=== PATIENT | male | born 1935 | race Caucasian/White ===

== ENCOUNTER 2017-10-25 09:18 | Emergency (ER) | payer MEDICARE ==
[~2017-10-25] VITALS: Ht 182.9 cm; Wt 104.3 kg
[~2017-10-25 09:18] MED LIST: BUPR150T66 PO; COZA100T PO; FENO50TA OR; GLIM1 PO; ISOS30 PO; LANO0.1212 OR; LEXA20TA PO; METO50CR OR; OMEP20TA OR; SIMV20TA PO; WARF2.5T40 PO; WARF5TAB PO
[2017-10-25 09:34] VITALS: BP 145/96; PULSE 94; RESP 18; TEMP 98.6
[2017-10-25 10:07] LABS: BILIRUBIN, URINE NEG (NEG); BLOOD, URINE NEG (NEG); GLUCOSE,URINE NEG (NEG); KETONE, URINE TRACE mg/dL (NEG); NITRITE,URINE NEG (NEG); URINE LEUKOCYTE ESTERASE NEG (NEG)
[2017-10-25] MEDS ORDERED: MORPHINE SULFATE 2 MG/ML INJ IV PUSH ONE ×2 (10:15)
[2017-10-25] MEDS ORDERED: SODIUM CHLORIDE 0.9% FLUSH 10 ML FLUSH IV FLUSH PRN (10:15)
[2017-10-25] MEDS ORDERED: ONDANSETRON HCL 4 MG/2 ML VIAL IVP ONE (10:15)
--- NOTE | 2017-10-25 10:18 | PD ---
HPI Chief Complaint: Abdominal Pain Time Seen by Provider: 10:03 Travel History International Travel<30 days: No Contact w/Intl Traveler<30days: No Traveled to known affect area: No History of Present Illness HPI This patient complains of abdominal pain. Duration 9 hours. Severity is moderate. Location is left lower quadrant. He has nausea but no vomiting or diarrhea or constipation or fever. History of abdominal surgeries. No alleviating factors. No exacerbating factors. PFSH Past Medical History Arthritis: No Asthma: No Atrial Fibrillation: Yes Autoimmune Disease: No Blood Disorders: No Anxiety: Yes Depression: Yes Heart Rhythm Problems: Yes Cancer: Yes (Skin cancer left forearm) Cardiac Catheterization: Yes Cardiovascular Problems: Yes (afib, HTN) High Cholesterol: Yes Chemotherapy: No Chest Pain: Yes Congestive Heart Failure: No COPD: No Cerebrovascular Accident: No Coronary Artery Disease: Yes Diabetes: Yes Patient Takes Glucophage: No Endocrine: No Gastrointestinal Disorders: Yes GERD: No Genitourinary: Yes (frequency) Headaches: No Hepatitis: No Hiatal Hernia: No Hypertension: Yes Immune Disorder: No Kidney Stones: Yes Musculoskeletal: Yes (ham strings tighten) Neurologic: No Psychiatric: Yes Reproductive: No Respiratory: No Migraines: No Myocardial Infarction: No Radiation Therapy: No Renal Failure: No Seizures: No Shingles: Yes Sickle Cell Disease: No Sleep Apnea: No Thyroid Disease: No Ulcer: No Past Surgical History Abdominal Surgery: No AICD: No Appendectomy: No Arteriovenous Shunt: No Cardiac Surgery: No Cholecystectomy: Yes Ear Surgery: No Endocrine Surgery: No Eye Surgery: Yes (cataracts removed eddie) Genitourinary Surgery: No Gynecologic Surgery: No Insulin Pump: No Joint Replacement: No Oral Surgery: No Pacemaker: No Thoracic Surgery: No Tonsillectomy: Yes Other Surgery: Yes (CATARACT SURGERY BOTH EYES) Social History Alcohol Use: No Tobacco Use: No (never) Substance Use: No Allergies-Medications (Allergen,Severity, Reaction): Coded Allergies: No Known Allergies (Verified Adverse Reaction, Unknown, 10/25/17) Reported Meds & Prescriptions Reported Meds & Active Scripts Active Flagyl (Metronidazole) 500 Mg Tab 500 Mg PO QID 10 Days Cipro (Ciprofloxacin HCl) 500 Mg Tab 500 Mg PO BID 10 Days Tramadol (Tramadol HCl) 50 Mg Tab 50 Mg PO Q6H PRN Zofran (Ondansetron HCl) 4 Mg Tab 4 Mg PO Q6HR PRN Reported Parafon Forte Dsc (Chlorzoxazone) 500 Mg Tab 500 Mg PO BID PRN Hydrocodone-Acetamin 5-325 mg (Hydrocodone/Acetaminophen) 5 Mg-325 Mg Tablet 1 Tab PO BID PRN Digoxin 0.125 Mg Tab 0.125 Mg PO DAILY Isosorbide Mononitrate ER (Isosorbide Mononitrate) 30 Mg Shanice 30 Mg PO DAILY Simvastatin 40 Mg Tab 20 Mg PO HS Losartan (Losartan Potassium) 100 Mg Tab 100 Mg PO DAILY Omeprazole 20 Mg Tab 20 Mg PO DAILY Bupropion HCl ER 24 HR (Bupropion HCl) 150 Mg Tab 150 Mg PO DAILY Warfarin 5 Mg Tab 2.5 Mg PO SUTUTHSA Warfarin 5 Mg Tab 5 Mg PO MOWEFR Tricor (Fenofibrate) 145 Mg Tab 145 Mg PO DAILY Takw with food. Metoprolol Tartrate 50 Mg Tab 25 Mg PO BID Glimepiride 1 Mg Tab 2 Mg PO DAILY Take with breakfast or first main meal Escitalopram (Escitalopram Oxalate) 20 Mg Tab 0.5 Tab PO DAILY Review of Systems General / Constitutional: No: Fever Eyes: No: Visual changes HENT: No: Headaches Cardiovascular: No: Chest Pain or Discomfort Respiratory: No: Shortness of Breath Gastrointestinal: Positive: Nausea, Abdominal Pain Genitourinary: No: Dysuria Musculoskeletal: No: Pain Skin: No Rash Neurologic: No: Weakness Psychiatric: No: Depression Endocrine: No: Polydipsia Hematologic/Lymphatic: No: Easy Bruising Physical Exam Narrative GENERAL: Well-nourished, well-developed patient with abdominal pain . SKIN: Focused skin assessment reveals no rash and nodules. Skin is Warm and dry. HEAD: Atraumatic. Normocephalic. EYES: Pupils equal and round. No scleral icterus. No injection or drainage. ENT: No nasal bleeding or discharge. Mucous membranes pink and moist. NECK: Trachea midline. No JVD. CARDIOVASCULAR: Regular rate and rhythm. No murmur appreciated. RESPIRATORY: No accessory muscle use. Clear to auscultation. Breath sounds equal bilaterally. GASTROINTESTINAL: Abdomen soft, upper quadrant is tender without rebound or guarding, nondistended. Hepatic and splenic margins not palpable. MUSCULOSKELETAL: No obvious deformities. No clubbing. No cyanosis. No edema. NEUROLOGICAL: Awake and alert. No obvious cranial nerve deficits. Motor grossly within normal limits. Normal speech. PSYCHIATRIC: Appropriate mood and affect; insight and judgment normal. Data Data Last Documented VS Vital Signs Date Time Temp Pulse Resp B/P (MAP) Pulse Ox O2 Delivery O2 Flow Rate FiO2 10/25/17 11:55 79 16 148/75 (99) 95 Room Air 10/25/17 09:34 98.6 Orders Orders Urinalysis - C+S If Indicated (10/25/17 09:43) Basic Metabolic Panel (Bmp) (10/25/17 10:11) Complete Blood Count With Diff (10/25/17 10:11) Prothrombin Time / Inr (Pt) (10/25/17 10:11) Act Partial Throm Time (Ptt) (10/25/17 10:11) Ct Abd/Pel W Iv Contrast(Rout) (10/25/17 10:11) Iv Access Insert/Monitor (10/25/17 10:11) NPO (10/25/17 10:11) Ondansetron Inj (Zofran Inj) (10/25/17 10:15) Sodium Chloride 0.9% Flush (Ns Flush) (10/25/17 10:15) Morphine Inj (Morphine Inj) (10/25/17 10:15) Morphine Inj (Morphine Inj) (10/25/17 10:15) Iohexol 350 Inj (Omnipaque 350 Inj) (10/25/17 11:23) Labs Laboratory Tests Test 10/25/17 09:49 10/25/17 10:30 Urine Collection Type CLEAN CATCH Urine Color YELLOW Urine Turbidity CLEAR Urine pH 6.0 Urine Specific [place] 1.022 Urine Protein NEG mg/dL Urine Glucose (UA) NEG mg/dL Urine Ketones TRACE mg/dL Urine Occult Blood NEG Urine Nitrite NEG Urine Bilirubin NEG Urine Leukocyte Esterase NEG Urine RBC 0-3 /hpf Urine Squamous Epithelial Cells 0-5 /hpf Microscopic Urinalysis Comment CULT NOT INDICATED Urine Collection Time 09:49 White Blood Count 12.3 TH/MM3 Red Blood Count 4.87 MIL/MM3 Hemoglobin 14.3 GM/DL Hematocrit 43.3 % Mean Corpuscular Volume 88.9 FL Mean Corpuscular Hemoglobin 29.4 PG Mean Corpuscular Hemoglobin Concent 33.0 % Red Cell Distribution Width 13.8 % Platelet Count 242 TH/MM3 Mean Platelet Volume 7.9 FL Neutrophils (%) (Auto) 82.2 % Lymphocytes (%) (Auto) 10.3 % Monocytes (%) (Auto) 6.3 % Eosinophils (%) (Auto) 0.1 % Basophils (%) (Auto) 1.1 % Neutrophils # (Auto) 10.1 TH/MM3 Lymphocytes # (Auto) 1.3 TH/MM3 Monocytes # (Auto) 0.8 TH/MM3 Eosinophils # (Auto) 0.0 TH/MM3 Basophils # (Auto) 0.1 TH/MM3 CBC Comment DIFF FINAL Differential Comment Prothrombin Time 24.7 SEC Prothromb Time International Ratio 2.4 RATIO Activated Partial Thromboplast Time 34.9 SEC Blood Urea Nitrogen 19 MG/DL Creatinine 1.40 MG/DL Random Glucose 171 MG/DL Calcium Level 8.8 MG/DL Sodium Level 134 MEQ/L Potassium Level 4.0 MEQ/L Chloride Level 100 MEQ/L Carbon Dioxide Level 26.7 MEQ/L Anion Gap 7 MEQ/L Estimat Glomerular Filtration Rate 48 ML/MIN [facility] Medical Decision Making Medical Screen Exam Complete: Yes Emergency Medical Condition: Yes Medical Record Reviewed: Yes Differential Diagnosis Diverticulitis, colitis, ileus Narrative Course I have reviewed the patient's electronic medical record. IV placed CBC shows minor leukocytosis Metabolic profile is normal Coagulation studies shows INR 2.4 on Coumadin Urinalysis is clean CT abdomen and pelvis with IV contrast shows mild diverticulitis changes without abscess or perforation I gave him a dose of IV Zofran and morphine for symptom relief On recheck he is clinically doing better and feels well. Stable for outpatient follow-up. Pain and nausea medicine written. 10 days of Flagyl and Cipro written. He is to contact his physician to get follow-up. Diagnosis Primary Impression: Diverticulitis large intestine w/o perforation or abscess w/o bleeding Scripts Metronidazole (Flagyl) 500 Mg Tab 500 MG PO QID for Infection for 10 Days, TAB 0 Refills Prov: Thomas Noe MD 10/25/17 Ciprofloxacin (Cipro) 500 Mg Tab 500 MG PO BID for Infection for 10 Days, #20 TAB 0 Refills Prov: Thomas Noe MD 10/25/17 Tramadol (Tramadol) 50 Mg Tab 50 MG PO Q6H Y for PAIN, #20 TAB 0 Refills Prov: Thomas Noe MD 10/25/17 Ondansetron (Zofran) 4 Mg Tab 4 MG PO Q6HR Y for NAUSEA OR VOMITING, #12 TAB 0 Refills Prov: Thomas Noe MD 10/25/17 Disposition: 01 DISCHARGE HOME Condition: Stable Thomas Noe MD Oct 25, 2017 10:18
[2017-10-25] MEDS ORDERED: OMEP20TA93 PO (10:20)
[2017-10-25] MEDS ORDERED: DIGO0.12 PO (10:20)
[2017-10-25] MEDS ORDERED: ISOS30TA3 PO (10:20)
[2017-10-25] MEDS ORDERED: GLIM1TAB PO (10:20)
[2017-10-25] MEDS ORDERED: ESCI20TA PO (10:20)
[2017-10-25] MEDS ORDERED: LOSA100T PO (10:20)
[2017-10-25] MEDS ORDERED: FENO50TA PO (10:20)
[2017-10-25] MEDS ORDERED: METO50TA PO (10:20)
[2017-10-25] MEDS ORDERED: WARF-23 PO ×2 (10:20)
[2017-10-25] MEDS ORDERED: BUPR150T3 PO (10:20)
[2017-10-25] MEDS ORDERED: SIMV40TA PO (10:20)
[2017-10-25] MEDS ORDERED: HYDR-3516 PO (10:22)
[2017-10-25] MEDS ORDERED: [UNRECOGNIZED DRUG - CODE] PO (10:22)
[2017-10-25 10:25] LABS: RBC, URINE 0-3 /hpf (0-3); SQUAMOUS EPITHELIAL CELL URINE 0-5 /hpf (0-5); URINE COLOR YELLOW (YELLW/STRAW)
[2017-10-25 10:38] LABS: AUTOMATED NEUTROPHIL # 10.1 TH/MM3 (1.8-7.7); BASOPHIL # 0.1 TH/MM3 (0-0.2); BASOPHIL % 1.1 % (0.0-2.0); EOSINOPHIL % 0.1 % (0.0-4.0); HEMATOCRIT 43.3 % (39.0-51.0); HEMOGLOBIN 14.3 GM/DL (13.0-17.0); LYMPH % 10.3 % (9.0-44.0); LYMPHOCYTE # 1.3 TH/MM3 (1.0-4.8); MEAN CELL VOLUME 88.9 FL (80.0-100.0); MEAN CORPUSCULAR HEMOGLOBIN 29.4 PG (27.0-34.0); MEAN PLATELET VOLUME 7.9 FL (7.0-11.0); MONO % 6.3 % (0.0-8.0); MONOCYTE # 0.8 TH/MM3 (0-0.9); NEUT % 82.2 % (16.0-70.0); PLATELET COUNT 242 TH/MM3 (150-450); RED BLOOD COUNT 4.87 MIL/MM3 (4.50-5.90); RED CELL DISTRIBUTION WIDTH 13.8 % (11.6-17.2); WHITE BLOOD COUNT 12.3 TH/MM3 (4.0-11.0)
[2017-10-25 10:52] LABS: INTERNATIONAL NORMALIZED RATIO 2.4 RATIO; PROTHROMBIN TIME - PATIENT 24.7 SEC (9.8-11.6)
[2017-10-25 10:54] LABS: CALCIUM 8.8 MG/DL (8.5-10.1)
[2017-10-25 10:55] LABS: BICARBONATE 26.7 MEQ/L (21.0-32.0)
[2017-10-25 10:58] LABS: CREATININE 1.4 MG/DL (0.60-1.30)
[2017-10-25 11:00] VITALS: BP 163/82; PULSE 83; RESP 16; O2SAT 93
[2017-10-25] MEDS ORDERED: IOHEXOL 350 MG/ML 10 ML VIAL (for RAD DIAG) IVCONTRAST ONE (11:23)
--- NOTE | 2017-10-25 11:48 | RADRPT ---
EXAM DATE/TIME: 10/25/2017 11:10 [facility] COMPARISON: No previous studies available for comparison. INDICATIONS : Left lower quadrant pain and nausea. IV CONTRAST: 80 cc Omnipaque 350 (iohexol) IV ORAL CONTRAST: No oral contrast ingested. RADIATION DOSE: 19.48 CTDIvol (mGy) MEDICAL HISTORY : Cardiovascular disease. Renal calculi. Hypertension. SURGICAL HISTORY : Cholecystectomy. ENCOUNTER: Initial ACUITY: 1 day PAIN SCALE: 10/10 LOCATION: Left lower quadrant TECHNIQUE: Volumetric scanning of the abdomen and pelvis was performed. Using automated exposure control and ad justment of the mA and/or kV according to patient size, radiation dose was kept as low as reasonably achievable to obtain optimal diagnostic quality images. DICOM format image data is available electro nically for review and comparison. FINDINGS: LOWER LUNGS: The visualized lower lungs are clear. LIVER: Subcentimeter hypodense lesions in segment 2 and 5 of the liver which are too small to fully characte rize. Liver is otherwise unremarkable without intrapelvic ductal dilatation. Gallbladder is surgicall y absent. SPLEEN: Slightly enlarged measuring up to 13.7 cm. PANCREAS: Within normal limits. KIDNEYS: Multiple bilateral subcentimeter renal lesions which are too small fully characterize. 2.5 cm exophyt ic cyst in the posterior mid left kidney. Kidneys otherwise demonstrate symmetrical enhancement witho ut evidence for hydronephrosis or radiopaque renal calculi. ADRENAL GLANDS: Within normal limits. VASCULAR: There is no aortic aneurysm. BOWEL/MESENTERY: Mild to moderate colonic diverticulosis in the descending and sigmoid colon. There is associated lee colonic inflammatory change in the distal descending colon consistent with diverticulitis. No evidenc e for perforation or abscess. Remaining bowel appear unremarkable. ABDOMINAL WALL: Within normal limits. RETROPERITONEUM: There is no lymphadenopathy. BLADDER: No wall thickening or mass. REPRODUCTIVE: Nonspecific prominence of the prostate gland which contains coarse calcifications. INGUINAL: There is no lymphadenopathy or hernia. MUSCULOSKELETAL: Within normal limits for patient age. CONCLUSION: 1. Mild diverticulitis in the distal descending colon. No perforation or drainable abscess at this ti me. 2. Mild splenomegaly. 3. Ancillary findings, as above. Bear Torres MD on October 25, 2017 at 11:34 Board Certified Radiologist. This report was verified electronically.
[2017-10-25 11:55] VITALS: BP 148/75; PULSE 79; RESP 16; O2SAT 95
[2017-10-25] MEDS ORDERED: CIPR-9 PO (11:55)
[2017-10-25] MEDS ORDERED: TRAM50TA PO (11:55)
[2017-10-25] MEDS ORDERED: ZOFR4TAB PO (11:55)
[2017-10-25] MEDS ORDERED: METR-1 PO (11:55)
== END 2017-10-25 12:15 | disposition home or self-care (01) ==
LOC: PHED 09:18
DX: K57.32 Diverticulitis of large intestine without perforation or abscess without bleeding (principal); I48.91 Unspecified atrial fibrillation; I10 Essential (primary) hypertension; I25.10 Atherosclerotic heart disease of native coronary artery without angina pectoris; E11.9 Type 2 diabetes mellitus without complications; E78.00 Pure hypercholesterolemia, unspecified; F41.8 Other specified anxiety disorders; Z87.39 Personal history of other diseases of the musculoskeletal system and connective tissue; Z79.84 Long term (current) use of oral hypoglycemic drugs
CPT/HCPCS: 74177; 80048; 81001; 85025; 85610; 85730; 96374; 96375; 99285; J2270; J2405; Q9967

== ENCOUNTER 2017-11-11 11:13 | Inpatient (IN) | payer MEDICARE ==
[2017-11-11] VITALS (9 sets, daily range): BP systolic 11–148; BP diastolic 58–81; PULSE 78–97; RESP 16–18; TEMP 98–98.9; O2SAT 94–98
[~2017-11-11] VITALS: Ht 182.9 cm; Wt 103.9 kg
[~2017-11-11 11:13] MED LIST changes: +BUPR150T3 PO; -BUPR150T66 PO; +CIPR-9 PO; -COZA100T PO; +DIGO0.12 PO; +ESCI20TA PO; -FENO50TA OR; +FENO50TA PO; -GLIM1 PO; +GLIM1TAB PO; +HYDR-3516 PO; -ISOS30 PO; +ISOS30TA3 PO; -LANO0.1212 OR; -LEXA20TA PO; +LOSA100T PO; -METO50CR OR; +METO50TA PO; +METR-1 PO; -OMEP20TA OR; +OMEP20TA93 PO; -SIMV20TA PO; +SIMV40TA PO; +TRAM50TA PO; +WARF-23 PO; -WARF2.5T40 PO; -WARF5TAB PO; +ZOFR4TAB PO; +[UNRECOGNIZED DRUG - CODE] PO
[2017-11-11] MEDS ORDERED: SODIUM CHLOR 0.9% 1000 ML INJ 1,000 ML IV SCH (11:45)
--- NOTE | 2017-11-11 11:52 | PD ---
HPI Chief Complaint: GI Complaint Time Seen by Provider: 11:29 Travel History International Travel<30 days: No Contact w/Intl Traveler<30days: No Traveled to known affect area: No History of Present Illness HPI This 82-year-old male is complaining of abdominal pain. He's been having pain for about 3 days. The pain is aggravated by certain movements. He has tried to eat just Jell-O and soup the pain is been ongoing. He had similar pain and came to the emergency department on October 25. At that time a CT scan showed some diverticulitis. His white count was 12,000. He was given prescriptions for Cipro and Flagyl. He says he took the medication for about 3 or 4 days and then he developed diarrhea and he stopped taking it. He was okay until a few days ago. He did see Dr. Kumari in the meantime who told him to come to the hospital immediately if the pain should recur. He does have a long history of diabetes. He has had a cholecystectomy in the past. He has been taking some pain medication for the discomfort. He feels like he has had some fever PFSH Past Medical History Arthritis: No Asthma: No Atrial Fibrillation: Yes Autoimmune Disease: No Blood Disorders: No Anxiety: Yes Depression: Yes Heart Rhythm Problems: Yes Cancer: Yes (Skin cancer left forearm) Cardiac Catheterization: Yes Cardiovascular Problems: Yes (afib, HTN) High Cholesterol: Yes Chemotherapy: No Chest Pain: Yes Congestive Heart Failure: No COPD: No Cerebrovascular Accident: No Coronary Artery Disease: Yes Diabetes: Yes Patient Takes Glucophage: Yes (TODAY) Diverticulitis: Yes Endocrine: No Gastrointestinal Disorders: Yes GERD: No Genitourinary: Yes (frequency) Headaches: No Hepatitis: No Hiatal Hernia: No Hypertension: Yes Immune Disorder: No Kidney Stones: Yes Musculoskeletal: Yes (ham strings tighten) Neurologic: No Psychiatric: Yes Reproductive: No Respiratory: No Migraines: No Myocardial Infarction: No Radiation Therapy: No Renal Failure: No Seizures: No Shingles: Yes Sickle Cell Disease: No Sleep Apnea: No Thyroid Disease: No Ulcer: No Past Surgical History Abdominal Surgery: No AICD: No Appendectomy: No Arteriovenous Shunt: No Cardiac Surgery: No Cholecystectomy: Yes Ear Surgery: No Endocrine Surgery: No Eye Surgery: Yes (cataracts removed eddie) Genitourinary Surgery: No Gynecologic Surgery: No Insulin Pump: No Joint Replacement: No Oral Surgery: No Pacemaker: No Thoracic Surgery: No Tonsillectomy: Yes Other Surgery: Yes (CATARACT SURGERY BOTH EYES) Social History Alcohol Use: No Tobacco Use: No Substance Use: No Allergies-Medications (Allergen,Severity, Reaction): Coded Allergies: No Known Allergies (Verified Adverse Reaction, Unknown, 11/11/17) Reported Meds & Prescriptions Reported Meds & Active Scripts Active Flagyl (Metronidazole) 500 Mg Tab 500 Mg PO QID 10 Days Cipro (Ciprofloxacin HCl) 500 Mg Tab 500 Mg PO BID 10 Days Tramadol (Tramadol HCl) 50 Mg Tab 50 Mg PO Q6H PRN Zofran (Ondansetron HCl) 4 Mg Tab 4 Mg PO Q6HR PRN Reported Metformin HCl (Metformin HCl (Bulk)) 100 % Pow 500 Mg PO BIDPC Digoxin 0.125 Mg Tab 0.125 Mg PO DAILY Isosorbide Mononitrate ER (Isosorbide Mononitrate) 30 Mg Shanice 30 Mg PO DAILY Simvastatin 40 Mg Tab 20 Mg PO HS Losartan (Losartan Potassium) 100 Mg Tab 100 Mg PO DAILY Omeprazole 20 Mg Tab 20 Mg PO DAILY Bupropion HCl ER 24 HR (Bupropion HCl) 150 Mg Tab 150 Mg PO DAILY Warfarin 5 Mg Tab 2.5 Mg PO SUTUTHSA Warfarin 5 Mg Tab 5 Mg PO MOWEFR Tricor (Fenofibrate) 145 Mg Tab 145 Mg PO DAILY Takw with food. Metoprolol Tartrate 50 Mg Tab 25 Mg PO BID Glimepiride 1 Mg Tab 2 Mg PO DAILY Take with breakfast or first main meal Escitalopram (Escitalopram Oxalate) 20 Mg Tab 0.5 Tab PO DAILY Review of Systems General / Constitutional: Positive: Fever, Chills Eyes: No: Diploplia, Blurred Vision HENT: No: Headaches, Vertigo Cardiovascular: No: Chest Pain or Discomfort, Palpitations Respiratory: No: Cough, Shortness of Breath Gastrointestinal: Positive: Nausea, Diarrhea, Abdominal Pain Genitourinary: No: Urgency, Frequency Musculoskeletal: No: Myalgias, Arthralgias Skin: No Rash, No Itching Neurologic: No: Weakness Psychiatric: No: Anxiety Physical Exam Narrative GENERAL: Well-developed male SKIN: Focused skin assessment warm/dry. HEAD: Atraumatic. Normocephalic. EYES: Pupils equal and round. No scleral icterus. No injection or drainage. ENT: No nasal bleeding or discharge. Mucous membranes pink and moist. NECK: Trachea midline. No JVD. CARDIOVASCULAR: Irregular rate and rhythm. No murmur appreciated. RESPIRATORY: No accessory muscle use. Clear to auscultation. Breath sounds equal bilaterally. GASTROINTESTINAL: Abdomen soft, there is left lower quadrant tenderness with local guarding, nondistended. Hepatic and splenic margins not palpable. MUSCULOSKELETAL: No obvious deformities. No clubbing. No cyanosis. No edema. NEUROLOGICAL: Awake and alert. No obvious cranial nerve deficits. Motor grossly within normal limits. Normal speech. PSYCHIATRIC: Appropriate mood and affect; insight and judgment normal. Data Data Last Documented VS Vital Signs Date Time Temp Pulse Resp B/P (MAP) Pulse Ox O2 Delivery O2 Flow Rate FiO2 11/11/17 13:23 78 16 134/60 (84) 96 Room Air 11/11/17 11:21 98.0 Orders Orders Complete Blood Count With Diff (11/11/17 11:44) Comprehensive Metabolic Panel (11/11/17 11:44) Urinalysis - C+S If Indicated (11/11/17 11:44) Ct Abd/Pel W Iv Contrast(Rout) (11/11/17 11:44) Sodium Chlor 0.9% 1000 Ml Inj (Ns 1000 M (11/11/17 11:45) Iohexol 350 Inj (Omnipaque 350 Inj) (11/11/17 12:53) Labs Laboratory Tests Test 11/11/17 11:55 11/11/17 13:20 White Blood Count 9.2 TH/MM3 Red Blood Count 4.99 MIL/MM3 Hemoglobin 14.2 GM/DL Hematocrit 44.7 % Mean Corpuscular Volume 89.6 FL Mean Corpuscular Hemoglobin 28.4 PG Mean Corpuscular Hemoglobin Concent 31.7 % Red Cell Distribution Width 14.4 % Platelet Count 248 TH/MM3 Mean Platelet Volume 7.9 FL Neutrophils (%) (Auto) 79.0 % Lymphocytes (%) (Auto) 14.3 % Monocytes (%) (Auto) 6.2 % Eosinophils (%) (Auto) 0.3 % Basophils (%) (Auto) 0.2 % Neutrophils # (Auto) 7.3 TH/MM3 Lymphocytes # (Auto) 1.3 TH/MM3 Monocytes # (Auto) 0.6 TH/MM3 Eosinophils # (Auto) 0.0 TH/MM3 Basophils # (Auto) 0.0 TH/MM3 CBC Comment DIFF FINAL Differential Comment Blood Urea Nitrogen 17 MG/DL Creatinine 1.50 MG/DL Random Glucose 116 MG/DL Total Protein 7.2 GM/DL Albumin 3.3 GM/DL Calcium Level 8.3 MG/DL Alkaline Phosphatase 42 U/L Aspartate Amino Transf (AST/SGOT) 31 U/L Alanine Aminotransferase (ALT/SGPT) 26 U/L Total Bilirubin 0.7 MG/DL Sodium Level 137 MEQ/L Potassium Level 3.8 MEQ/L Chloride Level 103 MEQ/L Carbon Dioxide Level 26.0 MEQ/L Anion Gap 8 MEQ/L Estimat Glomerular Filtration Rate 45 ML/MIN [facility] Medical Decision Making Medical Screen Exam Complete: Yes Emergency Medical Condition: Yes Medical Record Reviewed: Yes Differential Diagnosis Differential includes diverticulitis, outpatient treatment failure, perforation Narrative Course CT shows inflammatory changes mild wall thickening involving the distal descending colon characteristic of acute diverticulitis. There is no free air or fluid. Diagnosis Primary Impression: Diverticulitis Fady Rain MD Nov 11, 2017 11:52
[2017-11-11 12:10] LABS: AUTOMATED NEUTROPHIL # 7.3 TH/MM3 (1.8-7.7); BASOPHIL % 0.2 % (0.0-2.0); EOSINOPHIL % 0.3 % (0.0-4.0); HEMATOCRIT 44.7 % (39.0-51.0); HEMOGLOBIN 14.2 GM/DL (13.0-17.0); LYMPH % 14.3 % (9.0-44.0); LYMPHOCYTE # 1.3 TH/MM3 (1.0-4.8); MEAN CELL VOLUME 89.6 FL (80.0-100.0); MEAN CORPUSCULAR HEMOGLOBIN 28.4 PG (27.0-34.0); MEAN CORPUSCULAR HGB CONC 31.7 % (32.0-36.0); MEAN PLATELET VOLUME 7.9 FL (7.0-11.0); MONO % 6.2 % (0.0-8.0); MONOCYTE # 0.6 TH/MM3 (0-0.9); PLATELET COUNT 248 TH/MM3 (150-450); RED BLOOD COUNT 4.99 MIL/MM3 (4.50-5.90); RED CELL DISTRIBUTION WIDTH 14.4 % (11.6-17.2); WHITE BLOOD COUNT 9.2 TH/MM3 (4.0-11.0)
[2017-11-11 12:12] LABS: CHLORIDE 103 MEQ/L (98-107); SODIUM (NA) 137 MEQ/L (136-145)
[2017-11-11 12:15] LABS: CALCIUM 8.3 MG/DL (8.5-10.1)
[2017-11-11 12:16] LABS: ALBUMIN 3.3 GM/DL (3.4-5.0); BLOOD UREA NITROGEN 17 MG/DL (7-18); GLUCOSE,RANDOM 116 MG/DL (74-106)
[2017-11-11 12:19] LABS: ALT (GPT) 26 U/L (12-78); AST (GOT) 31 U/L (15-37); GLOMERULAR FILTRATION RATE 45 ML/MIN (>89)
[2017-11-11 12:20] LABS: TOTAL BILIRUBIN ADULT 0.7 MG/DL (0.2-1.0); TOTAL PROTEIN 7.2 GM/DL (6.4-8.2)
[2017-11-11 12:22] LABS: ALKALINE PHOSPHATASE 42 U/L (45-117)
[2017-11-11] MEDS ORDERED: METFORMIN HOLD POST IV CONTRAST SCH (12:45)
[2017-11-11] MEDS ORDERED: IOHEXOL 350 MG/ML 10 ML VIAL (for RAD DIAG) IVCONTRAST ONE (12:53)
[2017-11-11] MEDS ORDERED: METFPOW PO (13:18)
--- NOTE | 2017-11-11 13:24 | RADRPT ---
EXAM DATE/TIME: 11/11/2017 12:43 [facility] COMPARISON: CT ABDOMEN & PELVIS W CONTRAST, October 25, 2017, 11:10. INDICATIONS : Left lower quadrant pain. Recently diagnosed with diverticulitis with pain occurring the past few day s again with failed outpatient treatment. IV CONTRAST: 75 cc Omnipaque 350 (iohexol) IV ORAL CONTRAST: No oral contrast ingested. RADIATION DOSE: 19.28 CTDIvol (mGy) MEDICAL HISTORY : Hypercholesterolemia. Hypertension. Diverticulitis.Diabetes. Skin cancer. SURGICAL HISTORY : Cholecystectomy. ENCOUNTER: [facility] ACUITY: 3 days PAIN SCALE: 5/10 LOCATION: Left lower quadrant TECHNIQUE: Volumetric scanning of the abdomen and pelvis was performed. Using automated exposure control and ad justment of the mA and/or kV according to patient size, radiation dose was kept as low as reasonably achievable to obtain optimal diagnostic quality images. DICOM format image data is available electro nically for review and comparison. FINDINGS: LOWER LUNGS: The visualized lower lungs are clear. LIVER: Homogeneous density with stable small cystic lesion the left lobe. There is moderate hepatic steatosi s again noted. A second small low attenuation lesion in the right lobe which is unchanged. Patient is status post cholecystectomy.. There is no dilation of the biliary tree. No calcified gallstones. SPLEEN: Normal size without lesion. PANCREAS: Within normal limits. KIDNEYS: Normal in size and shape. There is no mass, stone or hydronephrosis. ADRENAL GLANDS: Within normal limits. VASCULAR: There is no aortic aneurysm. BOWEL/MESENTERY: Inflammatory change and mild wall thickening is again noted involving the distal descending colon wit h multiple diverticuli. This is not appears significantly change. There is no free air or fluid. Ther e is no evidence of obstruction. ABDOMINAL WALL: Within normal limits. RETROPERITONEUM: There is no lymphadenopathy. BLADDER: No wall thickening or mass. REPRODUCTIVE: Within normal limits. INGUINAL: There is no lymphadenopathy or hernia. MUSCULOSKELETAL: Within normal limits for patient age. CONCLUSION: 1. Inflammatory change and mild wall thickening again noted involving the distal descending colon mos t characteristic of acute diverticulitis. There is no free air or fluid. 2. Moderate hepatic steatosis. 3. Benign appearing low density lesions in the liver. Sotero Lee MD on November 11, 2017 at 13:18 Board Certified Radiologist. This report was verified electronically.
[2017-11-11 13:26] LABS: BILIRUBIN, URINE NEG (NEG); BLOOD, URINE NEG (NEG); GLUCOSE,URINE NEG (NEG); KETONE, URINE NEG (NEG); NITRITE,URINE NEG (NEG); PH, URINE 6.5 (5.0-8.5); URINE LEUKOCYTE ESTERASE NEG (NEG)
[2017-11-11] MEDS ORDERED: PIPERACIL-TAZO 4.5 GM PREMIX 100 ML IV ONE (13:45)
[2017-11-11 13:50] LABS: MUCUS URINE RARE /lpf (OCC); URINE COLOR YELLOW (YELLW/STRAW)
[2017-11-11 13:51] LABS: WBC, URINE 0-2 /hpf (0-5)
[2017-11-11] MEDS ORDERED: BISACODYL 10 MG SUPP RECTAL PRN (14:00)
[2017-11-11] MEDS ORDERED: MAGNESIUM HYDROXIDE SUSP 30 ML CUP PO PRN (14:00)
[2017-11-11] MEDS ORDERED: HYDROmorphone HCL PF 2 MG/ML VIAL IV PUSH PRN (14:00)
[2017-11-11] MEDS ORDERED: ACETAMINOPHEN 325 MG TAB PO PRN (14:00)
[2017-11-11] MEDS ORDERED: SENNOSIDES 8.6 MG TAB PO PRN (14:00)
[2017-11-11] MEDS ORDERED: NALOXONE HCL 0.4 MG/ML AMP IV PUSH PRN (14:00)
[2017-11-11] MEDS ORDERED: SODIUM CHLORIDE 0.9% FLUSH 10 ML FLUSH IV FLUSH PRN (14:00)
[2017-11-11] MEDS ORDERED: LACTULOSE SYRUP 20 GM/30 ML CUP PO PRN (14:00)
[2017-11-11] MEDS ORDERED: ONDANSETRON HCL 4 MG/2 ML VIAL IVP PRN (14:00)
[2017-11-11] MEDS ORDERED: WARFARIN SOD 5 MG TAB PO SCH (14:15)
[2017-11-11 15:16] LABS: INTERNATIONAL NORMALIZED RATIO 3.6 RATIO; PROTHROMBIN TIME - PATIENT 36.3 SEC (9.8-11.6)
[2017-11-11] MEDS ORDERED: metFORMIN HCL 500 MG TAB PO SCH (18:00)
--- NOTE | 2017-11-11 18:26 | HHI.HP ---
HPI Service [facility] Hospitalists Primary Care Physician Vin Kumari MD Admission Diagnosis ACUTE DIVERTICULITIS Chief Complaint: recurrent abdominal pain failed out patient treatment Travel History International Travel<30 Days: No Contact w/Intl Traveler <30 Da: No Traveled to Known Affected Are: No History of Present Illness This 82-year-old male is complaining of abdominal pain. He's been having pain for about 3 days. The pain is aggravated by certain movements. He has tried to eat just Jell-O and soup the pain is been ongoing. He had similar pain and came to the emergency department on October 25. At that time a CT scan showed some diverticulitis. His white count was 12,000. He was given prescriptions for Cipro and Flagyl. He says he took the medication for about 3 or 4 days and then he developed diarrhea and he stopped taking it. He was okay until a few days ago. He did see Dr. Kumari in the meantime who told him to come to the hospital immediately if the pain should recur and also told patient to go back on his antibiotics.. He does have a long history of diabetes. He has had a cholecystectomy in the past. He has been taking some pain medication for the discomfort. He feels like he has had some fever. He also went back to eating regular food which exacerbated his symptoms. CT consistent with acute diverticulitis. Review of Systems Gastrointestinal: COMPLAINS OF: Abdominal pain, Diarrhea, Nausea Past Family Social History Past Medical History a fib,anxiety,depression,hypertension,increase lipids,dm,kidney stone Past Surgical History gallbladder,tonsil cataract Reported Medications Flagyl (Metronidazole) 500 Mg Tab 500 Mg PO QID 10 Days Cipro (Ciprofloxacin HCl) 500 Mg Tab 500 Mg PO BID 10 Days Tramadol (Tramadol HCl) 50 Mg Tab 50 Mg PO Q6H PRN Zofran (Ondansetron HCl) 4 Mg Tab 4 Mg PO Q6HR PRN Reported Metformin HCl (Metformin HCl (Bulk)) 100 % Pow 500 Mg PO BIDPC Digoxin 0.125 Mg Tab 0.125 Mg PO DAILY Isosorbide Mononitrate ER (Isosorbide Mononitrate) 30 Mg Shanice 30 Mg PO DAILY Simvastatin 40 Mg Tab 20 Mg PO HS Losartan (Losartan Potassium) 100 Mg Tab 100 Mg PO DAILY Omeprazole 20 Mg Tab 20 Mg PO DAILY Bupropion HCl ER 24 HR (Bupropion HCl) 150 Mg Tab 150 Mg PO DAILY Warfarin 5 Mg Tab 2.5 Mg PO SUTUTHSA Warfarin 5 Mg Tab 5 Mg PO MOWEFR Tricor (Fenofibrate) 145 Mg Tab 145 Mg PO DAILY Takw with food. Metoprolol Tartrate 50 Mg Tab 25 Mg PO BID Glimepiride 1 Mg Tab 2 Mg PO DAILY Take with breakfast or first main meal Escitalopram (Escitalopram Oxalate) 20 Mg Tab 0.5 Tab PO DAILY Allergies: Coded Allergies: No Known Allergies (Verified Adverse Reaction, Unknown, 11/11/17) Social History NS,ND Physical Exam Vital Signs Vital Signs Date Time Temp Pulse Resp B/P (MAP) Pulse Ox O2 Delivery O2 Flow Rate FiO2 11/11/17 17:48 92 16 135/70 (91) 95 Room Air 11/11/17 14:32 88 16 111/60 (77) 96 Room Air 11/11/17 13:23 78 16 134/60 (84) 96 Room Air 11/11/17 11:21 98.0 89 16 132/61 (84) 94 Physical Exam GENERAL: This is a well-nourished, well-developed patient, in no apparent distress. SKIN: No rashes, ecchymoses or lesions. Cool and dry. HEAD: Atraumatic. Normocephalic. No temporal or scalp tenderness. EYES: Pupils equal round and reactive. Extraocular motions intact. No scleral icterus. No injection or drainage. ENT: Nose without bleeding, purulent drainage or septal hematoma. Throat without erythema, tonsillar hypertrophy or exudate. Uvula midline. Airway patent. NECK: Trachea midline. No JVD or lymphadenopathy. Supple, nontender, no meningeal signs. CARDIOVASCULAR: Regular rate and rhythm without murmurs, gallops, or rubs. RESPIRATORY: Clear to auscultation. Breath sounds equal bilaterally. No wheezes , rales, or rhonchi. GASTROINTESTINAL: Abdomen soft, mildly-tender, nondistended. No hepato- splenomegaly, or palpable masses. No guarding. MUSCULOSKELETAL: Extremities without clubbing, cyanosis, or edema. No joint tenderness, effusion, or edema noted. No calf tenderness. Negative Homans sign bilaterally. NEUROLOGICAL: Awake and alert. Cranial nerves II through XII intact. Motor and sensory grossly within normal limits. Five out of 5 muscle strength in all muscle groups. Normal speech. Laboratory Laboratory Tests Test 11/11/17 11:55 11/11/17 13:20 11/11/17 14:45 White Blood Count 9.2 Red Blood Count 4.99 Hemoglobin 14.2 Hematocrit 44.7 Mean Corpuscular Volume 89.6 Mean Corpuscular Hemoglobin 28.4 Mean Corpuscular Hemoglobin Concent 31.7 Red Cell Distribution Width 14.4 Platelet Count 248 Mean Platelet Volume 7.9 Neutrophils (%) (Auto) 79.0 Lymphocytes (%) (Auto) 14.3 Monocytes (%) (Auto) 6.2 Eosinophils (%) (Auto) 0.3 Basophils (%) (Auto) 0.2 Neutrophils # (Auto) 7.3 Lymphocytes # (Auto) 1.3 Monocytes # (Auto) 0.6 Eosinophils # (Auto) 0.0 Basophils # (Auto) 0.0 CBC Comment DIFF FINAL Differential Comment Blood Urea Nitrogen 17 Creatinine 1.50 Random Glucose 116 Total Protein 7.2 Albumin 3.3 Calcium Level 8.3 Alkaline Phosphatase 42 Aspartate Amino Transf (AST/SGOT) 31 Alanine Aminotransferase (ALT/SGPT) 26 Total Bilirubin 0.7 Sodium Level 137 Potassium Level 3.8 Chloride Level 103 Carbon Dioxide Level 26.0 Anion Gap 8 Estimat Glomerular Filtration Rate 45 Urine Collection Type VOIDED Urine Color YELLOW Urine Turbidity CLEAR Urine pH 6.5 Urine Specific [place] 1.035 Urine Protein NEG Urine Glucose (UA) NEG Urine Ketones NEG Urine Occult Blood NEG Urine Nitrite NEG Urine Bilirubin NEG Urine Leukocyte Esterase NEG Urine WBC 0-2 Urine Mucus RARE Microscopic Urinalysis Comment CULT NOT INDICATED Prothrombin Time 36.3 Prothromb Time International Ratio 3.6 Result Diagram: 11/11/17 1155 11/11/17 1155 Imaging Last 24 hours Impressions Abdomen/Pelvis CT 11/11/17 1144 Signed Impressions: Service Date/Time: Saturday, November 11, 2017 12:43 - CONCLUSION: 1. Inflammatory change and mild wall thickening again noted involving the distal descending colon most characteristic of acute diverticulitis. There is no free air or fluid. 2. Moderate hepatic steatosis. 3. Benign appearing low density lesions in the liver. Sotero Lee MD Course in er started on Zosyn and fluid Caprini VTE Risk Assessment Caprini VTE Risk Assessment: Mod/High Risk (score >= 2) Caprini Risk Assessment Model Point Value = 1 Point Value = 2 Point Value = 3 Point Value = 5 Age 41-60 Minor surgery BMI > 25 kg/m2 Swollen legs Varicose veins or History of unexplained or recurrent spontaneous Oral contraceptives or hormone replacement Sepsis (< 1 month) Serious lung disease, including pneumonia (< 1 month) Abnormal pulmonary function Acute myocardial infarction Congestive heart failure (< 1 month) History of inflammatory bowel disease Medical patient at bed rest Age 61-74 Arthroscopic surgery Major open surgery (> 45 min) Laparoscopic surgery (> 45 min) Malignancy Confined to bed (> 72 hours) Immobilizing plaster cast Central venous access Age >= 75 History of VTE Family history of VTE Factor V Leiden Prothrombin [id number] Lupus anticoagulant Anticardiolipin antibodies Elevated serum homocysteine Heparin-induced thrombocytopenia Other congenital or acquired thrombophilia Stroke (< 1 month) Elective arthroplasty Hip, pelvis, or leg fracture Acute spinal cord injury (< 1 month) Prophylaxis Regimen Total Risk Factor Score Risk Level Prophylaxis Regimen 0-1 Low Early ambulation 2 Moderate Order ONE of the following: *Sequential Compression Device (SCD) *Heparin 5000 units SQ BID 3-4 Higher Order ONE of the following medications: *Heparin 5000 units SQ TID *Enoxaparin/Lovenox 40 mg SQ daily (WT < 150 kg, CrCl > 30 mL/min) *Enoxaparin/Lovenox 30 mg SQ daily (WT < 150 kg, CrCl > 10-29 mL/min) *Enoxaparin/Lovenox 30 mg SQ BID (WT < 150 kg, CrCl > 30 mL/min) AND/OR *Sequential Compression Device (SCD) 5 or more Highest Order ONE of the following medications: *Heparin 5000 units SQ TID (Preferred with Epidurals) *Enoxaparin/Lovenox 40 mg SQ daily (WT < 150 kg, CrCl > 30 mL/min) *Enoxaparin/Lovenox 30 mg SQ daily (WT < 150 kg, CrCl > 10-29 mL/min) *Enoxaparin/Lovenox 30 mg SQ BID (WT < 150 kg, CrCl > 30 mL/min) AND *Sequential Compression Device (SCD) Assessment and Plan Problem List: (1) Diverticulitis ICD Codes: K57.92 - Diverticulitis of intestine, part unspecified, without perforation or abscess without bleeding Status: Acute Plan: continue zosyn fluid pain control nausea medication GI consult (2) Atrial fibrillation ICD Codes: I48.91 - Unspecified atrial fibrillation Status: Chronic Plan: continue home meds and coumadin (3) Diabetes ICD Codes: E11.9 - Type 2 diabetes mellitus without complications Status: Chronic Plan: as patient on clear liquids will hold po meds and use sliding scale Assessment and Plan further plan as case develops Code Status full Discussed Condition With patient Physician Certification 2 Midnight Certification Type: Admission for Inpatient Services Order for Inpatient Services The services are ordered in accordance with Medicare regulations or non- Medicare payer requirements, as applicable. In the case of services not specified as inpatient-only, they are appropriately provided as inpatient services in accordance with the 2-midnight benchmark. Estimated LOS (days): 2 2 days is the estimated time the patient will need to remain in the hospital, assuming treatment plan goals are met and no additional complications. Post-Hospital Plan: Not yet determined Problem Qualifiers (1) Diabetes: Dru Lovell MD Nov 11, 2017 18:26
[2017-11-11] MEDS ORDERED: PRAVASTATIN SOD 40 MG TAB PO SCH (21:00)
[2017-11-11] MEDS: INSULIN ASPART SUPPLEMENTAL SCALE SQ SCH (21:00)
[2017-11-11] MEDS: SODIUM CHLORIDE 0.9% FLUSH 10 ML FLUSH IV FLUSH SCH (21:39)
[2017-11-11] MEDS: METOPROLOL TARTRATE 25 MG TAB PO SCH (21:39)
[2017-11-11] MEDS: DOCUSATE SODIUM 50 MG/SENNA 8.6 MG TAB PO SCH (21:39)
[2017-11-11] MEDS: SODIUM CHLOR 0.45% 1000 ML INJ 1,000 ML IV SCH (23:26)
[2017-11-11] MEDS: PIPERACIL-TAZO 3.375 GM PREMIX 50 ML IV SCH (23:26)
[2017-11-12 04:00] VITALS: BP 144/75; PULSE 84; RESP 18; TEMP 98.9; O2SAT 93
[2017-11-12] MEDS: SODIUM CHLOR 0.45% 1000 ML INJ 1,000 ML IV SCH (04:20)
[2017-11-12 04:26] VITALS: PULSE 96
[2017-11-12] MEDS: PIPERACIL-TAZO 3.375 GM PREMIX 50 ML IV SCH ×2 (05:43→13:38)
[2017-11-12 06:41] LABS: AUTOMATED NEUTROPHIL # 6.6 TH/MM3 (1.8-7.7); BASOPHIL % 0.3 % (0.0-2.0); EOSINOPHIL % 0.5 % (0.0-4.0); HEMATOCRIT 39.2 % (39.0-51.0); HEMOGLOBIN 12.9 GM/DL (13.0-17.0); LYMPHOCYTE # 1.2 TH/MM3 (1.0-4.8); MEAN CORPUSCULAR HEMOGLOBIN 29.2 PG (27.0-34.0); MEAN CORPUSCULAR HGB CONC 32.8 % (32.0-36.0); MEAN PLATELET VOLUME 8.4 FL (7.0-11.0); MONO % 8.7 % (0.0-8.0); MONOCYTE # 0.7 TH/MM3 (0-0.9); NEUT % 76.5 % (16.0-70.0); PLATELET COUNT 213 TH/MM3 (150-450); RED BLOOD COUNT 4.41 MIL/MM3 (4.50-5.90); WHITE BLOOD COUNT 8.5 TH/MM3 (4.0-11.0)
[2017-11-12 06:54] LABS: INTERNATIONAL NORMALIZED RATIO 3.1 RATIO
[2017-11-12 07:04] LABS: CREATININE 1.5 MG/DL (0.60-1.30)
[2017-11-12 08:00] VITALS: BP 141/69; PULSE 93; RESP 14; TEMP 98; O2SAT 96
[2017-11-12] MEDS: INSULIN ASPART SUPPLEMENTAL SCALE SQ SCH ×2 (08:00→11:25)
[2017-11-12 08:15] VITALS: PULSE 83
[2017-11-12] MEDS ORDERED: PANTOPRAZOLE SOD 20 MG DELAYED RELEASE TAB PO SCH (09:00)
[2017-11-12] MEDS ORDERED: FENOFIBRATE 145 MG TAB PO SCH (09:00)
[2017-11-12] MEDS ORDERED: DIGOXIN 0.125 MG TAB PO SCH (09:00)
[2017-11-12] MEDS ORDERED: ISOSORBIDE MONONITRATE 30 MG TAB PO SCH (09:00)
[2017-11-12] MEDS ORDERED: GLIMEPIRIDE 2 MG TAB PO SCH (09:00)
[2017-11-12] MEDS ORDERED: LOSARTAN 50 MG TAB PO SCH (09:00)
[2017-11-12] MEDS ORDERED: ESCITALOPRAM OXALATE 10 MG TAB PO SCH (09:00)
[2017-11-12] MEDS ORDERED: buPROPion HCL 150 MG SUSTAINED RELEASE TAB PO SCH (09:00)
[2017-11-12] MEDS: DOCUSATE SODIUM 50 MG/SENNA 8.6 MG TAB PO SCH (09:24)
[2017-11-12] MEDS: METOPROLOL TARTRATE 25 MG TAB PO SCH (09:24)
[2017-11-12] MEDS: SODIUM CHLORIDE 0.9% FLUSH 10 ML FLUSH IV FLUSH SCH (09:25)
--- NOTE | 2017-11-12 10:59 | PD.CONS ---
HPI History of Present Illness This is a 82 year old male who presents to the emergency room with complaints of left lower quadrant abdominal pain CT on admission is done and he is found to have acute diverticulitis the patient reports having eaten nuts just prior to this episode he does report having had a colonoscopy in the past about 7 or 8 years ago and he did have colon polyps at the time since admission he was started on antibiotics and he is currently resting comfortably in bed feeling the patient does report having had issues with constipation prior to this episode but after he got his first doses of antibiotics he got diarrhea the antibiotics have since been changed and he denies any diarrhea at this point [facility] Past Medical History Age fibrillation, anxiety, hypertension, kidney stones, diabetes Past Surgical History gallbladder,tonsil cataract Coded Allergies: No Known Allergies (Verified Adverse Reaction, Unknown, 11/11/17) Medications Flagyl (Metronidazole) 500 Mg Tab 500 Mg PO QID 10 Days Cipro (Ciprofloxacin HCl) 500 Mg Tab 500 Mg PO BID 10 Days Tramadol (Tramadol HCl) 50 Mg Tab 50 Mg PO Q6H PRN Zofran (Ondansetron HCl) 4 Mg Tab 4 Mg PO Q6HR PRN Reported Metformin HCl (Metformin HCl (Bulk)) 100 % Pow 500 Mg PO BIDPC Digoxin 0.125 Mg Tab 0.125 Mg PO DAILY Isosorbide Mononitrate ER (Isosorbide Mononitrate) 30 Mg Shanice 30 Mg PO DAILY Simvastatin 40 Mg Tab 20 Mg PO HS Losartan (Losartan Potassium) 100 Mg Tab 100 Mg PO DAILY Omeprazole 20 Mg Tab 20 Mg PO DAILY Bupropion HCl ER 24 HR (Bupropion HCl) 150 Mg Tab 150 Mg PO DAILY Warfarin 5 Mg Tab 2.5 Mg PO SUTUTHSA Warfarin 5 Mg Tab 5 Mg PO MOWEFR Tricor (Fenofibrate) 145 Mg Tab 145 Mg PO DAILY Takw with food. Metoprolol Tartrate 50 Mg Tab 25 Mg PO BID Glimepiride 1 Mg Tab 2 Mg PO DAILY Take with breakfast or first main meal Escitalopram (Escitalopram Oxalate) 20 Mg Tab 0.5 Tab PO DAILY Family History Noncontributory Social History Negative Review of Systems Review of systems Patient denies any headache dizziness blurry vision, denies any chest pain shortness of breath cough fever chills, Denies any palpitations or fatigue denies any polyuria dysuria hematuria, denies any numbness tingling or weakness, denies any skin rash pruritus or jaundice, denies any easy bruising or bleeding tendency, denies any recent change in mood GI Exam Vitals I&O Vital Signs Date Time Temp Pulse Resp B/P (MAP) Pulse Ox O2 Delivery O2 Flow Rate FiO2 11/12/17 08:00 98.0 93 14 141/69 (93) 96 11/12/17 04:26 96 11/12/17 04:00 98.9 84 18 144/75 (98) 93 11/11/17 22:00 98.9 79 18 148/81 (103) 96 11/11/17 21:48 90 18 144/67 (92) 96 11/11/17 21:15 92 18 138/58 (84) 95 Room Air 11/11/17 20:12 97 18 143/71 (95) 95 Room Air 11/11/17 19:00 86 18 135/66 (89) 98 Room Air 11/11/17 19:00 18 11/11/17 17:48 92 16 135/70 (91) 95 Room Air 11/11/17 14:32 88 16 111/60 (77) 96 Room Air 11/11/17 13:23 78 16 134/60 (84) 96 Room Air 11/11/17 11:21 98.0 89 16 132/61 (84) 94 I/O 11/11/17 11/11/17 11/11/17 11/12/17 11/12/17 11/12/17 07:00 15:00 23:00 07:00 15:00 23:00 Intake Total 100 ml 670 ml 358 ml Output Total 500 ml Balance 100 ml 170 ml 358 ml Intake Oral 520 ml 358 ml IV Total 100 ml 150 ml Output Urine Total 500 ml # Bowel Movements 0 Imaging Last Impressions Abdomen/Pelvis CT 11/11/17 1144 Signed Impressions: Service Date/Time: Saturday, November 11, 2017 12:43 - CONCLUSION: 1. Inflammatory change and mild wall thickening again noted involving the distal descending colon most characteristic of acute diverticulitis. There is no free air or fluid. 2. Moderate hepatic steatosis. 3. Benign appearing low density lesions in the liver. Sotero Lee MD Laboratory Test 11/11/17 11:55 11/11/17 13:20 11/11/17 14:45 11/12/17 05:20 White Blood Count 9.2 TH/MM3 8.5 TH/MM3 Red Blood Count 4.99 MIL/MM3 4.41 MIL/MM3 Hemoglobin 14.2 GM/DL 12.9 GM/DL Hematocrit 44.7 % 39.2 % Mean Corpuscular Volume 89.6 FL 89.0 FL Mean Corpuscular Hemoglobin 28.4 PG 29.2 PG Mean Corpuscular Hemoglobin Concent 31.7 % 32.8 % Red Cell Distribution Width 14.4 % 14.0 % Platelet Count 248 TH/MM3 213 TH/MM3 Mean Platelet Volume 7.9 FL 8.4 FL Neutrophils (%) (Auto) 79.0 % 76.5 % Lymphocytes (%) (Auto) 14.3 % 14.0 % Monocytes (%) (Auto) 6.2 % 8.7 % Eosinophils (%) (Auto) 0.3 % 0.5 % Basophils (%) (Auto) 0.2 % 0.3 % Neutrophils # (Auto) 7.3 TH/MM3 6.6 TH/MM3 Lymphocytes # (Auto) 1.3 TH/MM3 1.2 TH/MM3 Monocytes # (Auto) 0.6 TH/MM3 0.7 TH/MM3 Eosinophils # (Auto) 0.0 TH/MM3 0.0 TH/MM3 Basophils # (Auto) 0.0 TH/MM3 0.0 TH/MM3 CBC Comment DIFF FINAL DIFF FINAL Differential Comment Blood Urea Nitrogen 17 MG/DL 14 MG/DL Creatinine 1.50 MG/DL 1.50 MG/DL Random Glucose 116 MG/DL 161 MG/DL Total Protein 7.2 GM/DL Albumin 3.3 GM/DL Calcium Level 8.3 MG/DL 8.0 MG/DL Alkaline Phosphatase 42 U/L Aspartate Amino Transf (AST/SGOT) 31 U/L Alanine Aminotransferase (ALT/SGPT) 26 U/L Total Bilirubin 0.7 MG/DL Sodium Level 137 MEQ/L 136 MEQ/L Potassium Level 3.8 MEQ/L 3.5 MEQ/L Chloride Level 103 MEQ/L 103 MEQ/L Carbon Dioxide Level 26.0 MEQ/L 25.0 MEQ/L Anion Gap 8 MEQ/L 8 MEQ/L Estimat Glomerular Filtration Rate 45 ML/MIN 45 ML/MIN Urine Collection Type VOIDED Urine Color YELLOW Urine Turbidity CLEAR Urine pH 6.5 Urine Specific [place] 1.035 Urine Protein NEG mg/dL Urine Glucose (UA) NEG mg/dL Urine Ketones NEG mg/dL Urine Occult Blood NEG Urine Nitrite NEG Urine Bilirubin NEG Urine Leukocyte Esterase NEG Urine WBC 0-2 /hpf Urine Mucus RARE /lpf Microscopic Urinalysis Comment CULT NOT INDICATED Prothrombin Time 36.3 SEC 31.0 SEC Prothromb Time International Ratio 3.6 RATIO 3.1 RATIO Physical Examination HEENT: Pupils round and reactive to light; normocephalic; atraumatic; no jaundice. Throat is clear. NECK: Neck is supple, no JVD, no lymphadenopathy. CHEST: Chest is clear to auscultation and percussion. CARDIAC: Regular rate and rhythm with no murmur gallop or rubs. ABDOMEN: Soft, nondistended, nontender; no hepatosplenomegaly; bowel sounds are present in all four quadrants. EXTREMITIES: No clubbing, cyanosis, or edema. SKIN: Normal; no rash; no jaundice. [employer]GRAM[employer]: No focal deficits; alert and oriented times three. Assessment and Plan Plan Abdominal pain, acute diverticulitis History of colon polyps At this point the patient appears to be improving I do agree with current supportive care We will need to finish a course of antibiotics we'll defer to attending physician Patient to follow-up with GI in about 4 weeks at which time we will determine our next step which would most likely be to pursue a colonoscopy Patient advised to chew food well and eat loss roughage and to try and avoid nuts seeds and popcorn at this point Hasmukh Plaza MD Nov 12, 2017 10:59
[2017-11-12 11:27] LABS: BILIRUBIN, URINE NEG (NEG); BLOOD, URINE MOD (NEG); GLUCOSE,URINE NEG (NEG); KETONE, URINE NEG (NEG); NITRITE,URINE NEG (NEG); URINE LEUKOCYTE ESTERASE NEG (NEG)
[2017-11-12 11:34] LABS: URINE COLOR STRAW (YELLW/STRAW)
[2017-11-12 11:36] LABS: WBC, URINE 0-2 /hpf (0-5)
[2017-11-12 12:00] VITALS: BP 135/71; PULSE 85; RESP 14; TEMP 98; O2SAT 95
[2017-11-12] MEDS ORDERED: WARFARIN SOD 5 MG TAB PO SCH (14:15)
[2017-11-12] MEDS ORDERED: CIPR-9 PO ×3 (15:36→15:40)
--- NOTE | 2017-11-12 15:48 | HHI.DS ---
Discharge Summary Admission Date Nov 11, 2017 at 14:01 Admitting Diagnosis ACUTE DIVERTICULITIS (1) Diverticulitis Diagnosis: Principal ICD Codes: K57.92 - Diverticulitis of intestine, part unspecified, without perforation or abscess without bleeding Status: Acute (2) Atrial fibrillation Diagnosis: Secondary ICD Codes: I48.91 - Unspecified atrial fibrillation Status: Chronic (3) Diabetes Diagnosis: Secondary ICD Codes: E11.9 - Type 2 diabetes mellitus without complications Status: Chronic Consultants GI Brief History This 82-year-old male is complaining of abdominal pain. He's been having pain for about 3 days. The pain is aggravated by certain movements. He has tried to eat just Jell-O and soup the pain is been ongoing. He had similar pain and came to the emergency department on October 25. At that time a CT scan showed some diverticulitis. His white count was 12,000. He was given prescriptions for Cipro and Flagyl. He says he took the medication for about 3 or 4 days and then he developed diarrhea and he stopped taking it. He was okay until a few days ago. He did see Dr. Kumari in the meantime who told him to come to the hospital immediately if the pain should recur and also told patient to go back on his antibiotics.. He does have a long history of diabetes. He has had a cholecystectomy in the past. He has been taking some pain medication for the discomfort. He feels like he has had some fever. He also went back to eating regular food which exacerbated his symptoms. CT consistent with acute diverticulitis. CBC/BMP: 11/12/17 0520 11/12/17 0520 Significant Findings Laboratory Tests Test 11/11/17 11:55 11/11/17 13:20 11/11/17 14:45 11/12/17 05:20 Mean Corpuscular Hemoglobin Concent 31.7 % (32.0-36.0) Neutrophils (%) (Auto) 79.0 % (16.0-70.0) 76.5 % (16.0-70.0) Creatinine 1.50 MG/DL (0.60-1.30) 1.50 MG/DL (0.60-1.30) Random Glucose 116 MG/DL (74-106) 161 MG/DL (74-106) Albumin 3.3 GM/DL (3.4-5.0) Calcium Level 8.3 MG/DL (8.5-10.1) 8.0 MG/DL (8.5-10.1) Alkaline Phosphatase 42 U/L (45-117) Estimat Glomerular Filtration Rate 45 ML/MIN (>89) 45 ML/MIN (>89) Prothrombin Time 36.3 SEC (9.8-11.6) 31.0 SEC (9.8-11.6) Red Blood Count 4.41 MIL/MM3 (4.50-5.90) Hemoglobin 12.9 GM/DL (13.0-17.0) Monocytes (%) (Auto) 8.7 % (0.0-8.0) Test 11/12/17 11:10 Urine Occult Blood MOD (NEG) Urine RBC 4-9 /hpf (0-3) PE at Discharge GENERAL: SKIN: Warm and dry. HEAD: Atraumatic. Normocephalic. EYES: Pupils equal and round. No scleral icterus. No injection or drainage. ENT: No nasal bleeding or discharge. Mucous membranes pink and moist. NECK: Trachea midline. No JVD. CARDIOVASCULAR: Regular rate and rhythm. RESPIRATORY: No accessory muscle use. Clear to auscultation. Breath sounds equal bilaterally. GASTROINTESTINAL: Abdomen soft, non-tender, nondistended. Hepatic and splenic margins not palpable. MUSCULOSKELETAL: Extremities without clubbing, cyanosis, or edema. No obvious deformities. NEUROLOGICAL: Awake and alert. No obvious cranial nerve deficits. Motor grossly within normal limits. Five out of 5 muscle strength in the arms and legs. Normal speech. PSYCHIATRIC: Appropriate mood and affect; insight and judgment normal. Hospital Course Patient admitted and was started on zosyn IV and was on clear liquids and his diabetic meds were on hold . Patient did well and advanced to diabetic diet and tolerated it well. He did have some blood in urine and patient does take coumadin for atrial fib INR was 3.1 ,i will hold today and tomorrow restart on with blood work ordered for saturday . Patient states that his has some loose stool will order c diff toxin and this can be checked as out patient. CT abdomen suggested acute diverticulitis ,GI saw patient agreed with plan and will follow up patient in 3 weeks for possible colonoscopy. Discharge on cipro 500 bid for 10days . To restart his regular diabetic medications. Pt Condition on Discharge: Good Discharge Disposition: Discharge Home Discharge Instructions DIET: Follow Instructions for: Diabetic Diet Activities you can perform: Regular-No Restrictions New Medications: Ciprofloxacin (Cipro) 500 Mg Tab 500 MG PO BID for Infection for 10 Days, #20 TAB 0 Refills one bid for 10 days Continued Medications: Bupropion HCl ER 24 HR (Bupropion HCl ER 24 HR) 150 Mg Tab 150 MG PO DAILY for Control Depression, TAB 0 Refills Ciprofloxacin (Cipro) 500 Mg Tab 500 MG PO BID for Infection for 10 Days, #20 TAB 0 Refills (This prescription has been renewed) Digoxin (Digoxin) 0.125 Mg Tab 0.125 MG PO DAILY for Regulate Heart Beat, #30 TAB 0 Refills Escitalopram (Escitalopram) 20 Mg Tab 0.5 TAB PO DAILY, #30 TAB 0 Refills Fenofibrate (Tricor) 145 Mg Tab 145 MG PO DAILY, #30 TAB 0 Refills Takw with food. Glimepiride (Glimepiride) 1 Mg Tab 2 MG PO DAILY for Blood Sugar Management, #30 TAB 0 Refills Take with breakfast or first main meal Isosorbide Mononitrate ER (Isosorbide Mononitrate ER) 30 Mg Shanice 30 MG PO DAILY for Prevent Chest Pain, #30 TAB 0 Refills Losartan (Losartan) 100 Mg Tab 100 MG PO DAILY for Blood Pressure Management, #30 TAB 0 Refills Metformin HCl (Bulk) (Metformin HCl) 100 % Pow 500 MG PO BIDPC Metoprolol Tartrate (Metoprolol Tartrate) 50 Mg Tab 25 MG PO BID, #60 TAB 0 Refills Omeprazole (Omeprazole) 20 Mg Tab 20 MG PO DAILY, #30 TAB 0 Refills Ondansetron (Zofran) 4 Mg Tab 4 MG PO Q6HR PRN for NAUSEA OR VOMITING, #12 TAB 0 Refills Simvastatin (Simvastatin) 40 Mg Tab 20 MG PO HS for Cholesterol Management, #30 TAB 0 Refills Tramadol (Tramadol) 50 Mg Tab 50 MG PO Q6H PRN for PAIN, #20 TAB 0 Refills Warfarin (Warfarin) 5 Mg Tab 5 MG PO MoWeFr for Blood Clot Prevention, #30 TAB 0 Refills Warfarin (Warfarin) 5 Mg Tab 2.5 MG PO SuTuThSa for Blood Clot Prevention, #30 TAB 0 Refills Additional Information obtain stool study for c diff toxin and has lab work scheduled at [facility] for saturday. Will get cbc bmp and INR . Dru Lovell MD Nov 12, 2017 15:48
== END 2017-11-12 17:08 | disposition home or self-care (01) | DRG 392 ==
LOC: PHED 11:13 → PHEDA 14:01 → PH3A 21:50
PROVIDERS: ADMIT Internal Medicine; ATTEND Internal Medicine
DX: K57.32 Diverticulitis of large intestine without perforation or abscess without bleeding (principal); I48.91 Unspecified atrial fibrillation; Z79.01 Long term (current) use of anticoagulants; E11.9 Type 2 diabetes mellitus without complications; Z79.84 Long term (current) use of oral hypoglycemic drugs; I10 Essential (primary) hypertension; F41.9 Anxiety disorder, unspecified; Z85.828 Personal history of other malignant neoplasm of skin; Z86.010 Personal history of colon polyps
CPT/HCPCS: 74177; 80048; 80053; 81001; 82948; 85025; 85610; 96361; 96374; J1815; J2543; J7030; Q9967

== ENCOUNTER 2017-11-30 00:13 | Observation (INO) | payer MEDICARE ==
[~2017-11-30] VITALS: Ht 180.3 cm; Wt 103.6 kg
[2017-11-30] VITALS (9 sets, daily range): BP systolic 97–128; BP diastolic 50–87; PULSE 73–92; RESP 18–32; TEMP 98.9–99.6; O2SAT 95–97
[~2017-11-30 00:13] MED LIST changes: -HYDR-3516 PO; +METFPOW PO; -METR-1 PO; -[UNRECOGNIZED DRUG - CODE] PO
[2017-11-30 02:27] LABS: AUTOMATED NEUTROPHIL # 7.1 TH/MM3 (1.8-7.7); BASOPHIL # 0.2 TH/MM3 (0-0.2); BASOPHIL % 2.4 % (0.0-2.0); EOSINOPHIL % 0.2 % (0.0-4.0); HEMATOCRIT 38.3 % (39.0-51.0); HEMOGLOBIN 12.7 GM/DL (13.0-17.0); LYMPHOCYTE # 0.7 TH/MM3 (1.0-4.8); MEAN CORPUSCULAR HEMOGLOBIN 29.2 PG (27.0-34.0); MEAN CORPUSCULAR HGB CONC 33.2 % (32.0-36.0); MEAN PLATELET VOLUME 8.3 FL (7.0-11.0); MONO % 4.1 % (0.0-8.0); MONOCYTE # 0.3 TH/MM3 (0-0.9); NEUT % 85.3 % (16.0-70.0); PLATELET COUNT 200 TH/MM3 (150-450); RED BLOOD COUNT 4.36 MIL/MM3 (4.50-5.90); WHITE BLOOD COUNT 8.3 TH/MM3 (4.0-11.0)
[2017-11-30 02:36] LABS: MAGNESIUM 1.7 MG/DL (1.5-2.5)
[2017-11-30 02:39] LABS: CHLORIDE 101 MEQ/L (98-107); SODIUM (NA) 135 MEQ/L (136-145)
--- NOTE | 2017-11-30 02:43 | RADRPT ---
EXAM DATE/TIME: 11/30/2017 02:21 [place] COMPARISON: CHEST SINGLE AP, December 21, 2015, 5:46. INDICATIONS : Cough. MEDICAL HISTORY : Hypercholesterolemia. Hypertension. Diverticulitis.Diabetes. Skin cancer SURGICAL HISTORY : Cholecystectomy. ENCOUNTER: Initial ACUITY: 1 day PAIN SCORE: 0/10 LOCATION: Bilateral chest FINDINGS: Slight cardiomegaly is seen. Lungs are clear. CONCLUSION: Slight cardiomegaly. Carlos A Figueredo MD on November 30, 2017 at 2:41 Board Certified Radiologist. This report was verified electronically.
[2017-11-30 02:44] LABS: BICARBONATE 26.9 MEQ/L (21.0-32.0); TROPONIN I 0.03 NG/ML (0.02-0.05)
[2017-11-30 02:45] LABS: BLOOD UREA NITROGEN 19 MG/DL (7-18); CALCIUM 8.5 MG/DL (8.5-10.1)
[2017-11-30 02:46] LABS: ALBUMIN 3.3 GM/DL (3.4-5.0); ALT (GPT) 19 U/L (12-78); AST (GOT) 30 U/L (15-37); GLUCOSE,RANDOM 71 MG/DL (74-106)
[2017-11-30 02:47] LABS: GLOMERULAR FILTRATION RATE 39 ML/MIN (>89)
[2017-11-30 02:48] LABS: TOTAL PROTEIN 7.4 GM/DL (6.4-8.2)
[2017-11-30 02:50] LABS: TOTAL BILIRUBIN ADULT 0.5 MG/DL (0.2-1.0)
[2017-11-30 02:51] LABS: ALKALINE PHOSPHATASE 37 U/L (45-117)
[2017-11-30 03:02] LABS: BILIRUBIN, URINE NEG (NEG); BLOOD, URINE SMALL (NEG); GLUCOSE,URINE NEG (NEG); KETONE, URINE NEG (NEG); NITRITE,URINE NEG (NEG); PH, URINE 5.5 (5.0-8.5); URINE LEUKOCYTE ESTERASE NEG (NEG)
[2017-11-30 03:08] LABS: INTERNATIONAL NORMALIZED RATIO 2.4 RATIO; PROTHROMBIN TIME - PATIENT 24.7 SEC (9.8-11.6)
[2017-11-30 03:10] LABS: CALCIUM OXALATE CRYSTALS,URINE FEW /hpf; RBC, URINE 0-3 /hpf (0-3); SQUAMOUS EPITHELIAL CELL URINE 0-5 /hpf (0-5); URINE COLOR AMBER (YELLW/STRAW); WBC, URINE 0-2 /hpf (0-5)
[2017-11-30] MEDS ORDERED: GLUCAGON 1 MG/ML VIAL IM PRN (03:30)
[2017-11-30] MEDS ORDERED: SODIUM CHLORID 0.9% 500 ML INJ 500 ML IV SCH (03:30)
--- NOTE | 2017-11-30 03:53 | PD ---
HPI Chief Complaint: Diabetic Time Seen by Provider: 02:01 Travel History International Travel<30 days: No Contact w/Intl Traveler<30days: No Traveled to known affect area: No History of Present Illness HPI The patient is an 82-year-old male type II diabetic controlled on glimepiride and metformin who developed shortness of breath, trouble walking, generalized weakness and sweating today. [facility] was called and his blood sugar was 54 and the field. He was given one half amp of D50 W any sugar was 172 here. His appetite decreased on Saturday and only ate 2 eggs and a banana all day. PFSH Past Medical History Arthritis: No Asthma: No Atrial Fibrillation: Yes Autoimmune Disease: No Blood Disorders: No Anxiety: Yes Depression: Yes Heart Rhythm Problems: Yes Cancer: Yes (Skin cancer left forearm) Cardiac Catheterization: Yes Cardiovascular Problems: Yes (afib, HTN) High Cholesterol: Yes Chemotherapy: No Chest Pain: Yes Congestive Heart Failure: No COPD: No Cerebrovascular Accident: No Coronary Artery Disease: Yes Diabetes: Yes Patient Takes Glucophage: Yes Diverticulitis: Yes Endocrine: No Gastrointestinal Disorders: Yes GERD: No Genitourinary: Yes (frequency) Headaches: No Hepatitis: No Hiatal Hernia: No Heparin Induced Thrombocytopen: No Hypertension: Yes Immune Disorder: No Implanted Vascular Access Dvce: No Kidney Stones: Yes Musculoskeletal: No Neurologic: No Psychiatric: Yes Reproductive: No Respiratory: No Migraines: No Myocardial Infarction: No Radiation Therapy: No Renal Failure: No Seizures: No Shingles: Yes Sickle Cell Disease: No Sleep Apnea: No Thyroid Disease: No Ulcer: No Influenza Vaccination: Yes Past Surgical History Abdominal Surgery: No AICD: No Appendectomy: No Arteriovenous Shunt: No Cardiac Surgery: No Cholecystectomy: Yes Ear Surgery: No Endocrine Surgery: No Eye Surgery: Yes (cataracts removed eddie) Genitourinary Surgery: No Gynecologic Surgery: No Insulin Pump: No Joint Replacement: No Neurologic Surgery: No Oral Surgery: No Pacemaker: No Thoracic Surgery: No Tonsillectomy: Yes Other Surgery: Yes (CATARACT SURGERY BOTH EYES) Social History Alcohol Use: No Tobacco Use: No Substance Use: No Allergies-Medications (Allergen,Severity, Reaction): Coded Allergies: No Known Allergies (Verified Adverse Reaction, Unknown, 11/11/17) Reported Meds & Prescriptions Reported Meds & Active Scripts Active Cipro (Ciprofloxacin HCl) 500 Mg Tab 500 Mg PO BID 10 Days one bid for 10 days Cipro (Ciprofloxacin HCl) 500 Mg Tab 500 Mg PO BID 10 Days Tramadol (Tramadol HCl) 50 Mg Tab 50 Mg PO Q6H PRN Zofran (Ondansetron HCl) 4 Mg Tab 4 Mg PO Q6HR PRN Reported Metformin HCl (Metformin HCl (Bulk)) 100 % Pow 500 Mg PO BIDPC Digoxin 0.125 Mg Tab 0.125 Mg PO DAILY Isosorbide Mononitrate ER (Isosorbide Mononitrate) 30 Mg Shanice 30 Mg PO DAILY Simvastatin 40 Mg Tab 20 Mg PO HS Losartan (Losartan Potassium) 100 Mg Tab 100 Mg PO DAILY Omeprazole 20 Mg Tab 20 Mg PO DAILY Bupropion HCl ER 24 HR (Bupropion HCl) 150 Mg Tab 150 Mg PO DAILY Warfarin 5 Mg Tab 2.5 Mg PO SUTUTHSA Tricor (Fenofibrate) 145 Mg Tab 145 Mg PO DAILY Takw with food. Metoprolol Tartrate 50 Mg Tab 25 Mg PO BID Glimepiride 1 Mg Tab 2 Mg PO DAILY Take with breakfast or first main meal Escitalopram (Escitalopram Oxalate) 20 Mg Tab 0.5 Tab PO DAILY Review of Systems Except as stated in HPI: all other systems reviewed are Neg Physical Exam Narrative GENERAL: The patient is alert, oriented 3 in no apparent distress. His vital signs show blood pressure 119/56 but are otherwise normal. SKIN: Focused skin assessment warm/dry. HEAD: Atraumatic. Normocephalic. EYES: Pupils equal and round. No scleral icterus. No injection or drainage. ENT: No nasal bleeding or discharge. Mucous membranes pink and moist. NECK: Trachea midline. No JVD. CARDIOVASCULAR: Regular rate and rhythm. No murmur appreciated. RESPIRATORY: No accessory muscle use. Clear to auscultation. Breath sounds equal bilaterally. GASTROINTESTINAL: Abdomen soft, non-tender, nondistended. Hepatic and splenic margins not palpable. No guarding or rebound is present. MUSCULOSKELETAL: No obvious deformities. No clubbing. No cyanosis. No edema. NEUROLOGICAL: Awake and alert. No obvious cranial nerve deficits. Motor grossly within normal limits. Normal speech. PSYCHIATRIC: Appropriate mood and affect; insight and judgment normal. Data Data Last Documented VS Vital Signs Date Time Temp Pulse Resp B/P (MAP) Pulse Ox O2 Delivery O2 Flow Rate FiO2 11/30/17 03:16 92 18 107/55 (72) 97 Room Air 11/30/17 00:15 99.2 Orders Orders Urinalysis - C+S If Indicated (11/30/17 02:02) Magnesium (Mg) (11/30/17 02:02) Influenzae A/B Antigen (11/30/17 02:02) Chest, Pa & Lat (11/30/17 02:02) Electrocardiogram (11/30/17 02:02) Complete Blood Count With Diff (11/30/17 02:02) Troponin I (11/30/17 02:02) Comprehensive Metabolic Panel (11/30/17 02:17) Prothrombin Time / Inr (Pt) (11/30/17 02:52) Place In Observation (11/30/17 ) Diet Regular Basic (11/30/17 Breakfast) Vital Signs (Adult) CHANDRAKANT.Q4H (11/30/17 03:22) ^ Fall Precautions (11/30/17 03:22) Activity Oob With Assistance (11/30/17 03:22) Bedside Glucose CHANDRAKANT.CSUGAR (11/30/17 03:22) Bedside Glucose Q30M (11/30/17 03:22) Hypoglycemia 70 Mg/Dl Or < (11/30/17 03:22) Dextrose 50% In Stu (Vial) Inj (D50w (Vi (11/30/17 03:30) Glucagon Inj (Glucagon Inj) (11/30/17 03:30) Glucose, Random (11/30/17 03:22) Sodium Chlorid 0.9% 500 Ml Inj (Ns 500 M (11/30/17 03:30) Admit Order (Ed Use Only) (11/30/17 03:40) Labs Laboratory Tests Test 11/30/17 02:17 11/30/17 02:50 11/30/17 03:40 White Blood Count 8.3 TH/MM3 Red Blood Count 4.36 MIL/MM3 Hemoglobin 12.7 GM/DL Hematocrit 38.3 % Mean Corpuscular Volume 88.0 FL Mean Corpuscular Hemoglobin 29.2 PG Mean Corpuscular Hemoglobin Concent 33.2 % Red Cell Distribution Width 14.0 % Platelet Count 200 TH/MM3 Mean Platelet Volume 8.3 FL Neutrophils (%) (Auto) 85.3 % Lymphocytes (%) (Auto) 8.0 % Monocytes (%) (Auto) 4.1 % Eosinophils (%) (Auto) 0.2 % Basophils (%) (Auto) 2.4 % Neutrophils # (Auto) 7.1 TH/MM3 Lymphocytes # (Auto) 0.7 TH/MM3 Monocytes # (Auto) 0.3 TH/MM3 Eosinophils # (Auto) 0.0 TH/MM3 Basophils # (Auto) 0.2 TH/MM3 CBC Comment DIFF FINAL Differential Comment Prothrombin Time 24.7 SEC Prothromb Time International Ratio 2.4 RATIO Blood Urea Nitrogen 19 MG/DL Creatinine 1.70 MG/DL Random Glucose 71 MG/DL Total Protein 7.4 GM/DL Albumin 3.3 GM/DL Calcium Level 8.5 MG/DL Magnesium Level 1.7 MG/DL Alkaline Phosphatase 37 U/L Aspartate Amino Transf (AST/SGOT) 30 U/L Alanine Aminotransferase (ALT/SGPT) 19 U/L Total Bilirubin 0.5 MG/DL Sodium Level 135 MEQ/L Potassium Level 4.0 MEQ/L Chloride Level 101 MEQ/L Carbon Dioxide Level 26.9 MEQ/L Anion Gap 7 MEQ/L Estimat Glomerular Filtration Rate 39 ML/MIN Troponin I 0.03 NG/ML Urine Color YESENIA Urine Turbidity CLEAR Urine pH 5.5 Urine Specific [place] 1.027 Urine Protein NEG mg/dL Urine Glucose (UA) NEG mg/dL Urine Ketones NEG mg/dL Urine Occult Blood SMALL Urine Nitrite NEG Urine Bilirubin NEG Urine Leukocyte Esterase NEG Urine RBC 0-3 /hpf Urine WBC 0-2 /hpf Urine Squamous Epithelial Cells 0-5 /hpf Urine Calcium Oxalate Crystals FEW /hpf Urine Bacteria NONE /hpf Microscopic Urinalysis Comment CULT NOT INDICATED MDM Medical Decision Making Medical Screen Exam Complete: Yes Emergency Medical Condition: Yes Medical Record Reviewed: Yes Interpretation(s) The EKG shows atrial fibrillation with occasional premature ventricular complexes. Nonspecific ST-T wave changes are present. The ventricular rate is 92. The CBC is normal except for hemoglobin of 12.7 and hematocrit of 38.3. The coagulation profile shows an INR of 2.4 and ProTime of 24.7. The complete metabolic profile shows a sodium of 135, BUN 19, creatinine 1.7, GFR of 39 with glucose 71 and alkaline phosphatase 37 with albumin 3.3. The urine shows small occult blood but is otherwise unremarkable on culture is not indicated. The troponin I is normal. Differential Diagnosis Hypoglycemia from oral diabetic medications, electrolyte disorder, acute coronary syndrome-unlikely Narrative Course The patient has hypoglycemia from his oral diabetic medications. He was given D50 W in the field and his sugar is 172. His sugar declined to 62 in the emergency department and he was given orange use, peanut butter, sean crackers , healthy choice diet and the sugar improved to 87. He remains alert and has a blood sugar of 82 at approximately 2:30 AM. Diagnosis Primary Impression: Hypoglycemia secondary to sulfonylurea Admitting Information Admitting Physician Requests: Observation Torin Colón MD Nov 30, 2017 03:53
[2017-11-30] MEDS ORDERED: DEXT 5%-NACL 0.45% 1000 ML INJ 1,000 ML IV SCH (05:45)
[2017-11-30] MEDS: DEXTROSE 50% IN WATER 50 ML VIAL(D50) IV PUSH PRN ×2 (05:53→12:54)
--- NOTE | 2017-11-30 06:24 | HHI.HP ---
HPI Service [facility] Hospitalists Primary Care Physician Vin Kumari MD Admission Diagnosis hypoglycemia from oral hypoglycemics Chief Complaint: confusion, shaking, low sugars, cough Travel History International Travel<30 Days: No Contact w/Intl Traveler <30 Da: No Traveled to Known Affected Are: No History of Present Illness 82-year-old male with COPD, diabetes and atrial fibrillation presents to ER with complaint of some confusion shakes and apparent low blood sugar of 54 as determined by [facility]. He reports that he had been sleeping and awoke somewhat confused with sweats so his [id number] notified [facility] and reportedly they determined he had low blood sugar. He has been given oral and IV sugar supplementation. Sugars are still in the 70s despite his oral intake and IV supplementation. It is noted that he has had a cough for a couple of days and has had little appetite on the day prior to admit. He reports he only ate a small amount of food over the last couple of days. He reports he feels much better now as far as his mentation and strength and is had no more tremors to sugars are above 70. His sugar initially went up into the 170s after D50 was given but has fallen back down in the 70s as noted. He said he had a low-grade fever yesterday and a cough which is generally nonproductive. Denies hemoptysis or hematemesis. Denies dysuria or hematuria. It is noted that he was in the hospital overnight in late October of this year for acute diverticulitis. Reports that he finished his medications without complication and actually lost some weight on the liquid diet he was to observe while taking those medications. He denies any chest pain or palpitations. He takes Climara parotid and metformin for his blood sugars and neither of these medications are new for him. Denies any new medications for review of outpatient records demonstrates that he may have been placed on gabapentin recently. Review of Systems Constitutional: COMPLAINS OF: Diaphoretic episodes, Fatigue, Weight loss Endocrine: DENIES: Heat/cold intolerance, Polydipsia, Polyuria, Polyphagia Eyes: DENIES: Blurred vision, Diplopia, Eye inflammation, Eye pain, Vision loss , Photosensitivity, Double Vision Ears, nose, mouth, throat: COMPLAINS OF: Hearing loss, DENIES: Tinnitus, Vertigo, Nasal discharge, Oral lesions, Throat pain, Hoarseness, Ear Pain, Running Nose, Epistaxis, Sinus Pain, Toothache, Odynophagia Respiratory: COMPLAINS OF: Cough, Sputum production, DENIES: Apneas, Snoring, Wheezing, Hemoptysis, Shortness of breath Cardiovascular: DENIES: Chest pain, Palpitations, Syncope, Dyspnea on Exertion , PND, Lower Extremity Edema, Orthopnea, Claudication Gastrointestinal: DENIES: Abdominal pain, Black stools, Bloody stools, BRB per rectum, Constipation, Diarrhea, GERD, Nausea, Reflux, Vomiting, Difficulty Swallowing, Anorexia, See HPI Musculoskeletal: COMPLAINS OF: Joint pain Integumentary: DENIES: Abnormal pigmentation, Nail changes, Pruritus, Rash Hematologic/lymphatic: DENIES: Bruising, Lymphadenopathy Immunologic/allergic: DENIES: Eczema, Urticaria Neurologic: DENIES: Abnormal gait, Headache, Localized weakness, Paresthesias, Seizures, Speech Problems, Tremor, Poor Balance Psychiatric: COMPLAINS OF: Anxiety, DENIES: Confusion, Mood changes, Depression , Hallucinations, Agitation, Suicidal Ideation, Homicidal Ideation, Delusions, History of Bipolar, History of Schizophrenia Past Family Social History Past Medical History Atrial fibrillation Anxiety BPH Coronary artery disease Chronic diastolic congestive heart failure 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 COPD Diabetes with peripheral neuropathy and nephropathy GERD Hypertension Obesity Peripheral vascular disease History of sick sinus syndrome Past Surgical History Bilateral cataract surgery , Cholecystectomy in 2006 Reported Medications Tramadol (Tramadol HCl) 50 Mg Tab 50 Mg PO Q6H PRN Zofran (Ondansetron HCl) 4 Mg Tab 4 Mg PO Q6HR PRN Metformin HCl (Metformin HCl (Bulk)) 100 % Pow 500 Mg PO BIDPC Digoxin 0.125 Mg Tab 0.125 Mg PO DAILY Isosorbide Mononitrate ER (Isosorbide Mononitrate) 30 Mg Shanice 30 Mg PO DAILY Simvastatin 40 Mg Tab 20 Mg PO HS Losartan (Losartan Potassium) 100 Mg Tab 100 Mg PO DAILY Omeprazole 20 Mg Tab 20 Mg PO DAILY Bupropion HCl ER 24 HR (Bupropion HCl) 150 Mg Tab 150 Mg PO DAILY Warfarin 5 Mg Tab 2.5 Mg PO SUTUTHSA Tricor (Fenofibrate) 145 Mg Tab 145 Mg PO DAILY Takw with food. 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 Physical Exam Vital Signs Vital Signs Date Time Temp Pulse Resp B/P (MAP) Pulse Ox O2 Delivery O2 Flow Rate FiO2 11/30/17 05:06 99.6 88 20 127/87 (100) 95 11/30/17 04:31 11/30/17 03:16 92 18 107/55 (72) 97 Room Air 11/30/17 00:45 18 96 Room Air 11/30/17 00:15 99.2 87 18 119/56 (77) 96 Physical Exam GENERAL: This is a well-nourished, obese, well-developed patient, in no apparent distress. Alert and oriented. Cooperative. SKIN: No rashes, ecchymoses or lesions. Cool and dry. HEAD: Atraumatic. Normocephalic. No temporal or scalp tenderness. EYES: Pupils equal round and reactive. Extraocular motions intact. No scleral icterus. No injection or drainage. ENT: Nose without bleeding, purulent drainage or septal hematoma. Airway patent. NECK: Trachea midline. No JVD or lymphadenopathy. Supple, nontender, no meningeal signs. CARDIOVASCULAR: Irregular rhythm without murmurs, gallops, or rubs. RESPIRATORY: Clear to auscultation. Breath sounds equal bilaterally. No wheezes , rales, or rhonchi. GASTROINTESTINAL: Abdomen soft, non-tender, nondistended. No hepato-splenomegaly , or palpable masses. No guarding. Bowel sounds normal. MUSCULOSKELETAL: Extremities without clubbing, cyanosis, or edema. No joint tenderness, effusion, or edema noted. No calf tenderness. NEUROLOGICAL: Awake and alert. Cranial nerves II through XII intact. Motor and sensory grossly within normal limits. Five out of 5 muscle strength in all muscle groups. Normal speech. Laboratory Laboratory Tests Test 11/30/17 02:17 11/30/17 02:50 11/30/17 03:40 White Blood Count 8.3 Red Blood Count 4.36 Hemoglobin 12.7 Hematocrit 38.3 Mean Corpuscular Volume 88.0 Mean Corpuscular Hemoglobin 29.2 Mean Corpuscular Hemoglobin Concent 33.2 Red Cell Distribution Width 14.0 Platelet Count 200 Mean Platelet Volume 8.3 Neutrophils (%) (Auto) 85.3 Lymphocytes (%) (Auto) 8.0 Monocytes (%) (Auto) 4.1 Eosinophils (%) (Auto) 0.2 Basophils (%) (Auto) 2.4 Neutrophils # (Auto) 7.1 Lymphocytes # (Auto) 0.7 Monocytes # (Auto) 0.3 Eosinophils # (Auto) 0.0 Basophils # (Auto) 0.2 CBC Comment DIFF FINAL Differential Comment Prothrombin Time 24.7 Prothromb Time International Ratio 2.4 Blood Urea Nitrogen 19 Creatinine 1.70 Random Glucose 71 76 Total Protein 7.4 Albumin 3.3 Calcium Level 8.5 Magnesium Level 1.7 Alkaline Phosphatase 37 Aspartate Amino Transf (AST/SGOT) 30 Alanine Aminotransferase (ALT/SGPT) 19 Total Bilirubin 0.5 Sodium Level 135 Potassium Level 4.0 Chloride Level 101 Carbon Dioxide Level 26.9 Anion Gap 7 Estimat Glomerular Filtration Rate 39 Troponin I 0.03 Urine Color YESENIA Urine Turbidity CLEAR Urine pH 5.5 Urine Specific [place] 1.027 Urine Protein NEG Urine Glucose (UA) NEG Urine Ketones NEG Urine Occult Blood SMALL Urine Nitrite NEG Urine Bilirubin NEG Urine Leukocyte Esterase NEG Urine RBC 0-3 Urine WBC 0-2 Urine Squamous Epithelial Cells 0-5 Urine Calcium Oxalate Crystals FEW Urine Bacteria NONE Microscopic Urinalysis Comment CULT NOT INDICATED Date/Time Source Procedure Growth Status 11/30/17 02:17 Nasal Aspirate Influenza Types A,B Antigen (KEARA) - Final NEGATIVE FOR FLU A AND B ANTIGEN.... Complete Result Diagram: 11/30/177 11/30/17 0340 Imaging Last 72 hours Impressions Chest X-Ray 11/30/17 0202 Signed Impressions: Service Date/Time: Thursday, November 30, 2017 02:21 - CONCLUSION: Slight cardiomegaly. MD Edmund Hand VTE Risk Assessment Edmund VTE Risk Assessment: Mod/High Risk (score >= 2) Caprini Risk Assessment Model Point Value = 1 Point Value = 2 Point Value = 3 Point Value = 5 Age 41-60 Minor surgery BMI > 25 kg/m2 Swollen legs Varicose veins or History of unexplained or recurrent spontaneous Oral contraceptives or hormone replacement Sepsis (< 1 month) Serious lung disease, including pneumonia (< 1 month) Abnormal pulmonary function Acute myocardial infarction Congestive heart failure (< 1 month) History of inflammatory bowel disease Medical patient at bed rest Age 61-74 Arthroscopic surgery Major open surgery (> 45 min) Laparoscopic surgery (> 45 min) Malignancy Confined to bed (> 72 hours) Immobilizing plaster cast Central venous access Age >= 75 History of VTE Family history of VTE Factor V Leiden Prothrombin [id number] Lupus anticoagulant Anticardiolipin antibodies Elevated serum homocysteine Heparin-induced thrombocytopenia Other congenital or acquired thrombophilia Stroke (< 1 month) Elective arthroplasty Hip, pelvis, or leg fracture Acute spinal cord injury (< 1 month) Prophylaxis Regimen Total Risk Factor Score Risk Level Prophylaxis Regimen 0-1 Low Early ambulation 2 Moderate Order ONE of the following: *Sequential Compression Device (SCD) *Heparin 5000 units SQ BID 3-4 Higher Order ONE of the following medications: *Heparin 5000 units SQ TID *Enoxaparin/Lovenox 40 mg SQ daily (WT < 150 kg, CrCl > 30 mL/min) *Enoxaparin/Lovenox 30 mg SQ daily (WT < 150 kg, CrCl > 10-29 mL/min) *Enoxaparin/Lovenox 30 mg SQ BID (WT < 150 kg, CrCl > 30 mL/min) AND/OR *Sequential Compression Device (SCD) 5 or more Highest Order ONE of the following medications: *Heparin 5000 units SQ TID (Preferred with Epidurals) *Enoxaparin/Lovenox 40 mg SQ daily (WT < 150 kg, CrCl > 30 mL/min) *Enoxaparin/Lovenox 30 mg SQ daily (WT < 150 kg, CrCl > 10-29 mL/min) *Enoxaparin/Lovenox 30 mg SQ BID (WT < 150 kg, CrCl > 30 mL/min) AND *Sequential Compression Device (SCD) Assessment and Plan Problem List: (1) Hypoglycemia secondary to sulfonylurea ICD Codes: T38.3X1A - Poisoning by insulin and oral hypoglycemic [antidiabetic ] drugs, accidental (unintentional), initialencounter; E16.0 - Drug-induced hypoglycemia without coma Status: Acute Plan: We'll hold his hypoglycemic medications at this point. Continue dextrose supplementation and oral intake. Continue regular blood sugar monitoring. We'll discharge home once sugars stabilized. He has demonstrated that he can tolerate oral intake quite well. His renal indices are a bit elevated above his usual baseline. He has been provided IV fluids. (2) Atrial fibrillation ICD Codes: I48.91 - Unspecified atrial fibrillation Status: Chronic Plan: Rate is controlled and INR therapeutic. Continue current therapy. (3) Diabetes ICD Codes: E11.9 - Type 2 diabetes mellitus without complications Status: Chronic Plan: Hypoglycemia as noted above. Treat as noted above. We'll not be resuming his glimepiride at discharge at this point, I likely will need resumption in the future given his A1c values. His A1c was 7.0 in October. Prior to that it was in the low 8s range. (4) Hypertension ICD Codes: I10 - Essential (primary) hypertension Status: Chronic Plan: Continue medication. Adjust as appropriate. (5) Hyperlipidemia ICD Codes: E78.5 - Hyperlipidemia, unspecified Status: Acute Plan: Continue medication. Outpatient monitoring. Code Status Full Discussed Condition With Patient, his nurse and ER provider. Problem Qualifiers (1) Atrial fibrillation: Qualified Codes: I48.0 - Paroxysmal atrial fibrillation (2) Diabetes: (3) Hypertension: Qualified Codes: I10 - Essential (primary) hypertension Priyank Franco MD PhD Nov 30, 2017 06:24
[2017-11-30] MEDS ORDERED: RESP: ALBUTEROL 2.5 MG/IPRATROPIUM 0.5 MG NEB (PRN) NEB (06:30)
[2017-11-30] MEDS ORDERED: guaiFENesin/DEXTROMETHORPHAN 200 MG/20 MG/10 ML CUP PO PRN (06:30)
[2017-11-30] MEDS ORDERED: traMADol HCL 50 MG TAB PO PRN (06:30)
[2017-11-30] MEDS ORDERED: ONDANSETRON ODT 4 MG TAB PO PRN (06:45)
[2017-11-30] MEDS: ISOSORBIDE MONONITRATE 30 MG CR TAB (IMDUR) PO SCH (08:11)
[2017-11-30] MEDS: DIGOXIN 0.125 MG TAB PO SCH (08:12)
[2017-11-30] MEDS: ESCITALOPRAM OXALATE 10 MG TAB PO SCH (08:12)
[2017-11-30] MEDS: PANTOPRAZOLE SOD 20 MG DELAYED RELEASE TAB PO SCH (08:12)
[2017-11-30] MEDS: AZITHROMYCIN 250 MG TAB PO SCH (08:12)
[2017-11-30] MEDS: buPROPion HCL 150 MG SUSTAINED RELEASE TAB PO SCH (08:13)
[2017-11-30 08:42] LABS: CALCIUM 8.6 MG/DL (8.5-10.1)
[2017-11-30 08:43] LABS: BICARBONATE 24.7 MEQ/L (21.0-32.0)
[2017-11-30 08:47] LABS: CREATININE 1.6 MG/DL (0.60-1.30)
[2017-11-30] MEDS ORDERED: METOPROLOL TARTRATE 25 MG TAB PO SCH (09:00)
[2017-11-30] MEDS ORDERED: LOSARTAN 50 MG TAB PO SCH (09:00)
[2017-11-30] MEDS ORDERED: DEXTROSE 50% IN WATER 50 ML VIAL(D50) IV ONE (10:00)
[2017-11-30] MEDS ORDERED: DEXTROSE 10% INJ 500 ML IV SCH (12:15)
[2017-11-30] MEDS ORDERED: DEXTROSE 10% INJ 1,000 ML IV ONE (13:00)
--- NOTE | 2017-11-30 14:11 | EKG ---
Date Performed: 11/30/2017 Time Performed: 02:50:44 PTAGE: 82 years EKG: ATRIAL FIBRILLATION WITH ABERRANT CONDUCTION OR VENTRICULAR PREMATURE COMPLEXES MODERATE IN TRAVENTRICULAR CONDUCTION DELAY NONSPECIFIC ST & T-WAVE ABNORMALITY ABNORMAL RHYTHM ECG Consider ante rolateral ischemia PREVIOUS TRACING : 12/22/2015 07.50 DOCTOR: Sven Escobar Interpretating Date/Time 11/30/2017 14:09:49
[2017-11-30] MEDS ORDERED: methylPREDNISolone SOD SUCC 40 MG/1 ML VIAL IV PUSH ONE (15:15)
[2017-11-30] MEDS ORDERED: SODIUM CHLORID 0.9% 500 ML INJ 500 ML IV ONE (15:15)
[2017-11-30] MEDS ORDERED: WARFARIN SOD 2.5 MG TAB PO SCH (16:00)
[2017-11-30] MEDS ORDERED: PILL SPLITTER OTHER PRN (17:30)
[2017-11-30] MEDS: METOPROLOL TARTRATE 25 MG TAB PO SCH (19:31)
[2017-11-30] MEDS ORDERED: PRAVASTATIN SOD 40 MG TAB PO SCH (21:00)
[2017-12-01] VITALS: BP 129/75; PULSE 92; RESP 21; TEMP 97.7; O2SAT 98
[2017-12-01 04:00] VITALS: BP 164/89; PULSE 86; PULSE 92; RESP 15; O2SAT 98
--- NOTE | 2017-12-01 05:51 | HHI.PR ---
Subjective Remarks Feeling much better. Decreased cough. Looks sugars have improved and the D10 supplement has been stopped now. Objective Vitals Vital Signs Date Time Temp Pulse Resp B/P (MAP) Pulse Ox O2 Delivery O2 Flow Rate FiO2 12/01/17 04:00 92 15 164/89 (114) 98 12/01/17 04:00 86 12/01/17 00:00 97.7 92 21 129/75 (93) 98 12/01/17 00:00 92 11/30/17 20:00 90 11/30/17 20:00 98.9 90 24 128/76 (93) 95 11/30/17 16:00 99.6 90 29 113/50 (71) 97 11/30/17 15:00 88 11/30/17 12:00 84 32 97/53 (68) 96 11/30/17 10:22 99.6 73 29 103/51 (68) 95 11/30/17 08:00 99.0 88 20 118/56 (76) 95 GENERAL: Sleeping soundly, arouses to voice, alert and oriented. No acute distress. SKIN: Warm and dry. HEAD: Normocephalic. EYES: No scleral icterus. No injection or drainage. NECK: Supple, trachea midline. No JVD or lymphadenopathy. CARDIOVASCULAR: Irregularly irregular. No significant murmur. Rate in 80s to 90s on my exam. RESPIRATORY: Breath sounds equal bilaterally. No accessory muscle use. GASTROINTESTINAL: Abdomen soft, non-tender, nondistended. Bowel sounds normal. MUSCULOSKELETAL: No cyanosis, or edema. Moves all extremities well. BACK: No CVA tenderness. Result Diagram: 11/30/1721611/30/17 0820 Imaging Last 72 hours Impressions Chest X-Ray 11/30/17 0202 Signed Impressions: Service Date/Time: Thursday, November 30, 2017 02:21 - CONCLUSION: Slight cardiomegaly. Carlos A Figueredo MD Urinary Catheter: No Vascular Central Line Catheter: No A/P Problem List: (1) Hypoglycemia secondary to sulfonylurea ICD Codes: T38.3X1A - Poisoning by insulin and oral hypoglycemic [antidiabetic ] drugs, accidental (unintentional), initialencounter; E16.0 - Drug-induced hypoglycemia without coma Status: Acute Plan: Blood sugars have finally improved and dextrose supplementation has been stopped at this point. We'll continue to follow sugars throughout the day. If no more hypoglycemia and he continues to tolerate oral intake, will discharge home later today. Continue holding the sulfonylurea. (2) Atrial fibrillation ICD Codes: I48.91 - Unspecified atrial fibrillation Status: Chronic Plan: Rate is controlled and INR therapeutic. Continue current therapy. (3) Diabetes ICD Codes: E11.9 - Type 2 diabetes mellitus without complications Status: Chronic Plan: Hypoglycemia as noted above. Treat as noted above. We'll not be resuming his glimepiride at discharge at this point, likely will need resumption or additional hypoglycemics in the future given his A1c values. His A1c was 7.0 in October. Prior to that it was in the low 8s range. (4) Hypertension ICD Codes: I10 - Essential (primary) hypertension Status: Chronic Plan: Continue medication. Adjust as appropriate. (5) Hyperlipidemia ICD Codes: E78.5 - Hyperlipidemia, unspecified Status: Acute Plan: Continue medication. Outpatient monitoring. Discharge Planning Hopefully discharge home later today depending on clinical progress and glucose values. Problem Qualifiers (1) Atrial fibrillation: Qualified Codes: I48.0 - Paroxysmal atrial fibrillation (2) Diabetes: (3) Hypertension: Qualified Codes: I10 - Essential (primary) hypertension Priyank Franco MD PhD Dec 01, 2017 05:51
[2017-12-01] MEDS ORDERED: AZIT250T3 PO (05:55)
[2017-12-01] MEDS ORDERED: LOSA50TA PO (05:55)
[2017-12-01 06:04] LABS: INTERNATIONAL NORMALIZED RATIO 1.7 RATIO; PROTHROMBIN TIME - PATIENT 16.7 SEC (9.8-11.6)
[2017-12-01 06:06] LABS: CALCIUM 8.1 MG/DL (8.5-10.1)
[2017-12-01 06:07] LABS: BICARBONATE 25.1 MEQ/L (21.0-32.0)
[2017-12-01 06:15] LABS: CREATININE 1.3 MG/DL (0.60-1.30)
[2017-12-01 08:00] VITALS: BP 151/82; PULSE 90; RESP 28; TEMP 97.4; O2SAT 98
[2017-12-01] MEDS ORDERED: LOSARTAN 25 MG TAB PO SCH ×2 (09:00)
[2017-12-01] MEDS: AZITHROMYCIN 250 MG TAB PO SCH (09:09)
[2017-12-01] MEDS: METOPROLOL TARTRATE 25 MG TAB PO SCH (09:10)
[2017-12-01] MEDS: PANTOPRAZOLE SOD 20 MG DELAYED RELEASE TAB PO SCH (09:10)
[2017-12-01] MEDS: DIGOXIN 0.125 MG TAB PO SCH (09:10)
[2017-12-01] MEDS: buPROPion HCL 150 MG SUSTAINED RELEASE TAB PO SCH (09:10)
[2017-12-01] MEDS: ESCITALOPRAM OXALATE 10 MG TAB PO SCH (09:11)
[2017-12-01] MEDS: ISOSORBIDE MONONITRATE 30 MG CR TAB (IMDUR) PO SCH (11:33)
[2017-12-01 12:00] VITALS: BP 141/68; PULSE 88; RESP 22; TEMP 98.7; O2SAT 98
== END 2017-12-01 14:55 | disposition home or self-care (01) ==
LOC: PHED 00:13 → PHEDA 03:42 → PH3A 04:30 → PHICU 09:54
PROVIDERS: ADMIT Family Medicine; ATTEND Family Medicine
DX: T38.3X1A Poisoning by insulin and oral hypoglycemic [antidiabetic] drugs, accidental (unintentional), initial encounter (principal); E16.0 Drug-induced hypoglycemia without coma; I48.0 Paroxysmal atrial fibrillation; E78.5 Hyperlipidemia, unspecified; R61 Generalized hyperhidrosis; R53.83 Other fatigue; I25.10 Atherosclerotic heart disease of native coronary artery without angina pectoris; E78.00 Pure hypercholesterolemia, unspecified; I11.0 Hypertensive heart disease with heart failure; I50.32 Chronic diastolic (congestive) heart failure; N18.3 Chronic kidney disease, stage 3 (moderate); E11.42 Type 2 diabetes mellitus with diabetic polyneuropathy; E11.51 Type 2 diabetes mellitus with diabetic peripheral angiopathy without gangrene; J44.9 Chronic obstructive pulmonary disease, unspecified; R94.31 Abnormal electrocardiogram [ECG] [EKG]; K21.9 Gastro-esophageal reflux disease without esophagitis; F41.9 Anxiety disorder, unspecified; F33.9 Major depressive disorder, recurrent, unspecified; N40.0 Benign prostatic hyperplasia without lower urinary tract symptoms; H91.90 Unspecified hearing loss, unspecified ear; E66.9 Obesity, unspecified; Z79.899 Other long term (current) drug therapy; Z79.01 Long term (current) use of anticoagulants; Z79.84 Long term (current) use of oral hypoglycemic drugs; Z85.828 Personal history of other malignant neoplasm of skin
CPT/HCPCS: 71046; 80048; 80053; 80162; 81001; 82947; 82948; 83735; 84484; 85025; 85610; 87804; 93005; 96361; 96374; 99285; G0378; J2920; J7040